=== PATIENT | male | born 1965 | race African-American/Black ===

== ENCOUNTER 2016-10-29 20:41 | Emergency (ER) | payer BC ==
[~2016-10-29] VITALS: Ht 182.9 cm; Wt 113.8 kg
[~2016-10-29 20:41] MED LIST: ACTOS 30 MG TAB30 MG PO; ALLOPURINOL 30300 M2 PO; CRESTOR10 MG PO; GLUCOPHAGE1000 MG PO; HUMALOG100 UNIT/2 SQ; HYDROCODON-ACE1 EAC1 PO; IBUPROFEN 600600 M1 PO; INDOMETHACIN 5050 M1 PO; IRBESARTAN-HCT1 EACH PO; JANUVIA100 MG PO; LANTUS SUBQ; LIPITOR40 MG PO; LISINOPRIL40 MG PO; MEDROLDOSEPACK PO; MEPERIDINE PO; NORVASC10 MG PO; NOVOLIN 70100 UNIT/5 SQ; PREDNISONE 10 M10 MG PO; TRAMADOL 50 MG50 MG PO; ZANTAC 150MG T150 MG PO; ZYRTEC10 M2 PO
[2016-10-29] MEDS ORDERED: VALSARTAN-HCTZ1 EAC4 PO (20:53)
[2016-10-29] MEDS ORDERED: ALDACTONE50 MG PO (20:53)
[2016-10-29] MEDS ORDERED: METOPROLOL SUCC50 MG PO (20:54)
[2016-10-29] MEDS ORDERED: CATAPRES0.2 MG PO (20:54)
[2016-10-29] MEDS ORDERED: ULORIC80 MG PO (20:54)
[2016-10-29 21:48] LABS: ABSOLUTE NEUTROPHILS 4.1 thou/uL (1.4-8.2); BASOPHILS 1.1 % (0.0-2.0); EOSINOPHILS 2.3 % (0.0-3.0); HEMATOCRIT 42.3 % (42.0-52.0); HEMOGLOBIN 13.7 gm/dL (14.0-18.0); LYMPHOCYTES 22.3 % (24.0-44.0); MCH 27.7 pg (26.0-34.0); MCHC 32.5 g/dL (28.0-37.0); MCV 85.5 fL (80.0-100.0); MONOCYTES 6.6 % (1.0-8.0); PLATELET COUNT 245 thou/uL (150-400); POLYS 67.7 % (36.0-66.0); RBC 4.95 mil/uL (4.50-6.00); WBC 6.1 thou/uL (4.0-11.0)
[2016-10-29 21:52] LABS: MANUAL DIFF NO
[2016-10-29 21:59] LABS: CALCIUM 8.3 mg/dL (8.5-10.1); CREATININE 2.2 mg/dL (0.7-1.3); POTASSIUM 5.3 mmol/L (3.5-5.1)
[2016-10-29 22:03] LABS: ALBUMIN 1.4 g/dL (3.4-5.0); TOTAL BILIRUBIN 0.2 mg/dL (<0.1-1.0); TOTAL PROTEIN 5.6 g/dL (6.4-8.2)
[2016-10-29 23:03] VITALS: BP 203/92
== END 2016-10-29 23:19 | disposition home or self-care (01) ==
LOC: ER 20:41
PROVIDERS: Emergency Medicine
DX: K59.00 Constipation, unspecified (principal); I12.9 Hypertensive chronic kidney disease with stage 1 through stage 4 chronic kidney disease, or unspecified chronic kidney disease; E11.22 Type 2 diabetes mellitus with diabetic chronic kidney disease; N18.9 Chronic kidney disease, unspecified; E11.65 Type 2 diabetes mellitus with hyperglycemia; E88.09 Other disorders of plasma-protein metabolism, not elsewhere classified; M10.9 Gout, unspecified; F10.99 Alcohol use, unspecified with unspecified alcohol-induced disorder; Z88.5 Allergy status to narcotic agent; Z88.6 Allergy status to analgesic agent; Z79.4 Long term (current) use of insulin

== ENCOUNTER 2016-11-01 06:28 | Inpatient (IN) | payer BC ==
[~2016-11-01] VITALS: Ht 182.9 cm; Wt 110.4 kg
--- NOTE | ~2016-11-01 | EKG ---
[address] [address] [address] [place] [address] ELECTROCARDIOGRAM REPORT Name: HERNAN WOLF III Room #: YARITZA Nazario#: [id number] Admission: 11/01/16 Attend Phys: Discharge: Date of : 63 Report #: [id number] THIS REPORT FOR: //name// [facility] ED Test Date: 2016-11-01 Test Time: 07:57:29 Pat Name: HERNAN WOLF Department: Room: Gender: Research Methodologist: : 1965 Requested By: Dona Camacho Order Number: [id number] MD: Tomás Newman Measurements Intervals [place] Rate: 74 P: 56 CT: 183 QRS: 41 QRSD: 104 T: 22 QT: 403 QTc: 448 Interpretive Statements Sinus rhythm Probable anteroseptal infarct, recent Compared to ECG 06/30/2010 23:50:59 No significant change was found Electronically Signed On 11-01-2016 8:32:30 CDT by Tomás Newman [email or web address] <ELECTRONICALLY SIGNED> By: Tomás Newman MD, [facility] 11/01/16 0832 0757 0757 Tomás Newman MD, FACC /EPI
[~2016-11-01 06:28] MED LIST changes: +ALDACTONE50 MG PO; +CATAPRES0.2 MG PO; +METOPROLOL SUCC50 MG PO; +ULORIC80 MG PO; +VALSARTAN-HCTZ1 EAC4 PO
[2016-11-01 06:33] VITALS: BP 223/151
[2016-11-01 06:53] LABS: ABSOLUTE NEUTROPHILS 3.3 thou/uL (1.4-8.2); BASOPHILS 1.1 % (0.0-2.0); EOSINOPHILS 2.8 % (0.0-3.0); HEMATOCRIT 44.4 % (42.0-52.0); HEMOGLOBIN 14.6 gm/dL (14.0-18.0); LYMPHOCYTES 27.5 % (24.0-44.0); MCHC 32.9 g/dL (28.0-37.0); MCV 85.1 fL (80.0-100.0); MONOCYTES 7.3 % (1.0-8.0); PLATELET COUNT 245 thou/uL (150-400); POLYS 61.3 % (36.0-66.0); RBC 5.21 mil/uL (4.50-6.00); WBC 5.3 thou/uL (4.0-11.0)
[2016-11-01 06:57] LABS: MANUAL DIFF NO
[2016-11-01 07:07] LABS: ALBUMIN 1.6 g/dL (3.4-5.0); ALKALINE PHOSPHATASE 126 U/L (46-116); ANION GAP 4 mmol/L (7-16); BUN 36 mg/dL (7-18); CALCIUM 8.7 mg/dL (8.5-10.1); CHLORIDE 106 mmol/L (98-107); CO2 26 mmol/L (21-32); CREATININE 2.3 mg/dL (0.7-1.3); DIRECT BILIRUBIN < 0.1 mg/dL (<0.1-0.3); GLUCOSE 289 mg/dL (74-106); SGOT 25 U/L (15-37); SGPT 28 U/L (30-65); SODIUM 136 mmol/L (136-145); TOTAL BILIRUBIN 0.3 mg/dL (<0.1-1.0); TOTAL PROTEIN 6.1 g/dL (6.4-8.2)
[2016-11-01 07:23] LABS: POTASSIUM 6.7 mmol/L (3.5-5.1)
[2016-11-01 08:44] LABS: CALCIUM 8.9 mg/dL (8.5-10.1); CREATININE 2.2 mg/dL (0.7-1.3)
[2016-11-01 08:47] LABS: POTASSIUM 6.2 mmol/L (3.5-5.1)
[2016-11-01 17:12] LABS: URINE BILIRUBIN NEGATIVE (Negative); URINE BLOOD 1+ (Negative); URINE COLOR YELLOW; URINE GLUCOSE-RANDOM* 2+ (Negative); URINE KETONES NEGATIVE (Negative); URINE NITRITE NEGATIVE (Negative); URINE PROTEIN (DIPSTICK) 3+ (Negative); URINE SPECIFIC GRAVITY 1.015 (1.003-1.035); URINE UROBILINOGEN 0.2 E.U./dl (0.2-1.0)
[2016-11-01 17:22] LABS: CASTS None Seen /LPF (None Seen); CRYSTALS None Seen /LPF (None Seen); SQUAMOUS None Seen /LPF (0-3); URINE RBC 0-2 Rare /HPF (0-2)
[2016-11-01 17:23] LABS: BACTERIA 1-9 Few /HPF (None Seen); URINE WBC 0-5 Rare /HPF (0-5)
[2016-11-01 17:27] LABS: URINE CREATININE-RANDOM* 62.7 mg/dL
[2016-11-01 17:35] VITALS: BP 128/78
[2016-11-01 17:37] LABS: URINE PROTEIN-RANDOM* 700.3 mg/dL (<11.9)
[2016-11-01 20:01] VITALS: BP 147/80
[2016-11-02 01:11] LABS: GLYCOHEMOGLOBIN (HGB A1C) 7.8 % (4.8-5.6)
[2016-11-02 03:10] VITALS: BP 138/87
[2016-11-02 04:24] LABS: ABSOLUTE NEUTROPHILS 2.9 thou/uL (1.4-8.2); BASOPHILS 0.8 % (0.0-2.0); EOSINOPHILS 3.2 % (0.0-3.0); HEMATOCRIT 36.9 % (42.0-52.0); HEMOGLOBIN 12.2 gm/dL (14.0-18.0); LYMPHOCYTES 34.5 % (24.0-44.0); MANUAL DIFF NO; MCH 27.8 pg (26.0-34.0); MCV 84.4 fL (80.0-100.0); MONOCYTES 7.3 % (1.0-8.0); PLATELET COUNT 211 thou/uL (150-400); POLYS 54.2 % (36.0-66.0); RBC 4.37 mil/uL (4.50-6.00); RDW 13.8 % (10.5-14.5); WBC 5.4 thou/uL (4.0-11.0)
[2016-11-02 04:29] LABS: ALBUMIN 1.2 g/dL (3.4-5.0); CALCIUM 7.8 mg/dL (8.5-10.1); CREATININE 2.2 mg/dL (0.7-1.3); PHOSPHORUS 4.3 mg/dL (2.5-4.9); TOTAL BILIRUBIN 0.2 mg/dL (<0.1-1.0); TOTAL PROTEIN 4.6 g/dL (6.4-8.2)
[2016-11-02 04:30] LABS: POTASSIUM 4.6 mmol/L (3.5-5.1)
[2016-11-02 07:07] VITALS: BP 158/83
[2016-11-02] MEDS ORDERED: METOPROLOL SUCC50 MG PO (10:52)
[2016-11-02] MEDS ORDERED: LANTUS SUBQ (10:52)
[2016-11-02] MEDS ORDERED: CLONIDINE HCL0.2 M2 PO (10:52)
[2016-11-02] MEDS ORDERED: HUMALOG100 UNIT/2 SQ (11:31)
[2016-11-02] MEDS ORDERED: MIRALAX17 GM PO (11:34)
[2016-11-02] MEDS ORDERED: COLACE100 MG PO (11:34)
[2016-11-02 11:40] VITALS: BP 158/83
[2016-11-05 15:07] LABS: KAPPA FREE LIGHT CHAINS 44.3 mg/L (3.3-19.4); LAMBDA FREE LIGHT CHAINS 20.1 mg/L (5.7-26.3)
[2016-11-05 16:09] LABS: c-ANCA <1:20 titer (Neg:<1:20); p-ANCA <1:20 titer (Neg:<1:20)
== END 2016-11-02 14:06 | disposition home or self-care (01) | DRG 682 ==
LOC: ER 06:28 → 4E 09:19 → EROBS 09:19 → 4E 11:31
PROVIDERS: Emergency Medicine; Internal Medicine; Internal Medicine Nephrology
DX: N17.9 Acute kidney failure, unspecified (principal); E43 Unspecified severe protein-calorie malnutrition; E87.5 Hyperkalemia; N18.4 Chronic kidney disease, stage 4 (severe); K59.00 Constipation, unspecified; M10.9 Gout, unspecified; E11.22 Type 2 diabetes mellitus with diabetic chronic kidney disease; T50.0X5A Adverse effect of mineralocorticoids and their antagonists, initial encounter; I12.9 Hypertensive chronic kidney disease with stage 1 through stage 4 chronic kidney disease, or unspecified chronic kidney disease; E78.5 Hyperlipidemia, unspecified; M19.90 Unspecified osteoarthritis, unspecified site; Z96.643 Presence of artificial hip joint, bilateral; K21.9 Gastro-esophageal reflux disease without esophagitis; Z88.8 Allergy status to other drugs, medicaments and biological substances; Y92.89 Other specified places as the place of occurrence of the external cause; Z83.3 Family history of diabetes mellitus; Z82.49 Family history of ischemic heart disease and other diseases of the circulatory system
CPT/HCPCS: 10183

== ENCOUNTER 2016-11-05 11:59 | Inpatient (IN) | payer BC ==
[~2016-11-05] VITALS: Ht 182.9 cm; Wt 106.1 kg
--- NOTE | ~2016-11-05 | EKG ---
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 Operator: PATRICIA : 1965 Requested By: Rosalba Vogt Order Number: [id number] MD: Natanael Soriano Measurements Intervals [place] Rate: 89 P: 76 MT: 233 QRS: 33 QRSD: 100 T: 27 QT: 373 QTc: 454 Interpretive Statements Sinus rhythm Prolonged MT interval Probable left ventricular hypertrophy ST elev, probable normal early repol pattern Baseline wander in lead(s) V1 Compared to ECG 11/01/2016 07:57:29 First degree AV block now present ST (T wave) deviation now present Myocardial infarct finding no longer present Electronically Signed On 11-06-2016 22:52:10 CDT by Natanael Soriano [email or web address] <ELECTRONICALLY SIGNED> By: Natanael Soriano MD 11/06/16 2252 1245 1245 Natanael Soriano MD /EPI
--- NOTE | ~2016-11-05 | 2DMMODE ---
[facility] [address] [place] [address] 2 D/M-MODE ECHOCARDIOGRAM Name: LUCIANOHERNAN [facility] Room #: 456-P [facility] IN ..#: [id number] Admission: 11/05/16 Attend Phys: Andie Chand Discharge: Date of : 63 Date of Service: 11/05/16 1724 Report #: [id number] THIS REPORT FOR: //name// APPROVED REPORT Study performed: 11/05/2016 15:33:56 EXAM: Comprehensive 2D, Doppler, and color-flow Echocardiogram Patient Location: Bedside Room #: 453 Other Information Study Quality: Adequate Indications CVA/TIA Diabetes Hypertension/HDD Echo Enhancing Agent Indication: Rule out Shunt Agent(s) / Amount(s) Used: Agitated Saline 6 cc 2D Dimensions RVDd: 31.85 mm LVEF(%): 64.05 (>50%) IVSd: 19.67 (7-11mm) LVOT Diam: 23.80 (18-24mm) LVDd: 40.40 mm PWd: 19.92 (7-11mm) Ascending Ao: 34.08 (22-36mm) LVDs: 26.49 (25-40mm) Aortic Root: 34.37 mm IVC: 10.00 mm Kelly's LVEF: 64.05 % Volumes Left Atrial Volume (Systole) Single Plane 4CH: 51.08 mL Single Plane 2CH: 38.47 mL LA ESV Index: 20.00 mL/m2 Aortic Valve AoV Peak Royce.: 1.25 m/s AO Peak Gr.: 6.23 mmHg LVOT Max P.06 mmHg LVOT Max V: 1.12 m/s NAVEEN Vmax: 4.01 cm2 Mitral Valve [facility] [place] [address] [address] 2 D/M-MODE ECHOCARDIOGRAM Name: LUCIANOHERNAN [facility] Room #: 456-P [facility] IN ..#: [id number] Admission: 11/05/16 Attend Phys: Andie Chand Discharge: Date of : 63 Date of Service: 11/05/16 1724 Report #: [id number] E/A Ratio: 0.6 MV Decel. Time: 304.88 ms MV E Max Royce.: 0.71 m/s MV A Royce.: 1.12 m/s MV PHT: 88.42 ms IVRT: 65.74 ms Pulmonary Valve PV Peak Royce.: 1.37 m/s PV Peak Gr.: 7.56 mmHg Pulmonary Vein P Vein S: 0.70 m/s P Vein A: 0.13 m/s P Vein D: 0.54 m/s P Vein A Dur.: 86.5 msec P Vein S/D Ratio: 1.30 Tricuspid Valve RAP Estimate: 5.00 mmHg Left Ventricle The left ventricle is normal size. Severe concentric left ventricular hypertrophy. The left ventricular systolic function is normal. The left ventricular ejection fraction is within the normal range. LVEF is 60-65%. Mild diastolic dysfunction is present (impaired relaxation pattern). Right Ventricle The right ventricle is normal size. The right ventricular systolic function is normal. Atria The left atrium size is normal. Injection of bubbles documented no interatrial shunt. The right atrium size is normal. Aortic Valve The aortic valve is normal in structure. No aortic regurgitation is present. There is no aortic valvular stenosis. Mitral Valve The mitral valve is normal in structure. There is no mitral valve regurgitation noted. No evidence of mitral valve stenosis. Tricuspid Valve The tricuspid valve is normal in structure. There is no tricuspid valve regurgitation noted. Unable to assess PA pressure. Pulmonic Valve [address] [address] 2 D/M-MODE ECHOCARDIOGRAM Name: HERNAN WOLF III Room #: 456-P [facility] IN .R.#: [id number] Admission: 11/05/16 Attend Phys: Andie Chand Discharge: Date of : 63 Date of Service: 11/05/16 1724 Report #: [id number] Pulmonic valve is not well visualized. Trace pulmonic regurgitation. Great Vessels The aortic root is normal in size. IVC is normal in size and collapses >50% with inspiration. <Conclusion> The left ventricle is normal size. LVEF is 60-65%. The aortic valve is normal in structure. The mitral valve is normal in structure. The tricuspid valve is normal in structure. Pulmonic valve is not well visualized. Trace pulmonic regurgitation. <ELECTRONICALLY SIGNED> By: Neeraj Vidales MD 11/05/164 23 23 Neeraj Vidales MD /INF
[~2016-11-05 11:59] MED LIST changes: +CLONIDINE HCL0.2 M2 PO; +COLACE100 MG PO; +MIRALAX17 GM PO
[2016-11-05 12:27] LABS: ABSOLUTE NEUTROPHILS 2.6 thou/uL (1.4-8.2); BASOPHILS 1.3 % (0.0-2.0); EOSINOPHILS 3.3 % (0.0-3.0); HEMATOCRIT 40.7 % (42.0-52.0); HEMOGLOBIN 13.5 gm/dL (14.0-18.0); LYMPHOCYTES 29.9 % (24.0-44.0); MCH 27.6 pg (26.0-34.0); MCV 83.6 fL (80.0-100.0); PLATELET COUNT 237 thou/uL (150-400); POLYS 56.5 % (36.0-66.0); RBC 4.87 mil/uL (4.50-6.00); RDW 13.2 % (10.5-14.5); WBC 4.6 thou/uL (4.0-11.0)
[2016-11-05 12:29] LABS: MANUAL DIFF NO
[2016-11-05 12:35] LABS: ANION GAP 7 mmol/L (7-16); BUN 43 mg/dL (7-18); CHLORIDE 110 mmol/L (98-107); CO2 25 mmol/L (21-32); CREATININE 2.3 mg/dL (0.7-1.3); SODIUM 142 mmol/L (136-145)
[2016-11-05 12:38] LABS: GLUCOSE 31 mg/dL (74-106)
[2016-11-05 12:43] LABS: TROPONIN-I < 0.04 ng/mL (<0.04-0.07)
[2016-11-05 14:12] LABS: CHOLESTEROL 230 mg/dL (<200); HDL CHOLESTEROL 65 mg/dL (>40); LDL CHOLESTEROL 148 mg/dL (<100); TC:HDL 3.5 Ratio (Not establshd); TRIGLYCERIDE 86 mg/dL (<150); VLDL 17 mg/dL (<40)
[2016-11-05 14:28] VITALS: BP 197/101
[2016-11-05 14:56] VITALS: BP 150/82
[2016-11-05 19:35] VITALS: BP 160/77
[2016-11-06] VITALS: BP 116/65
[2016-11-06 03:08] VITALS: BP 146/77
[2016-11-06 06:45] LABS: ALBUMIN 1.5 g/dL (3.4-5.0); CALCIUM 8.2 mg/dL (8.5-10.1); CREATININE 2.4 mg/dL (0.7-1.3); POTASSIUM 4.2 mmol/L (3.5-5.1); TROPONIN-I 0.05 ng/mL (<0.04-0.07)
[2016-11-06 09:09] VITALS: BP 153/92
[2016-11-06 11:21] VITALS: BP 160/80
[2016-11-06 20:11] VITALS: BP 159/88
[2016-11-07] VITALS (8 sets, daily range): BP systolic 131–189; BP diastolic 75–107
[2016-11-08 04:00] VITALS: BP 122/76
[2016-11-08 05:44] VITALS: BP 161/85
[2016-11-08 08:15] VITALS: BP 182/68
[2016-11-08] MEDS ORDERED: LABETALOL HCL200 MG PO (09:36)
[2016-11-08] MEDS ORDERED: MINOXIDIL10 MG PO (09:36)
[2016-11-08] MEDS ORDERED: ASPIRIN325 PO ×2 (09:38)
[2016-11-08 12:25] VITALS: BP 138/70
[2016-11-08 15:33] VITALS: BP 138/70
[2016-11-09 01:06] LABS: DIL. RUSSELL VIPER VENOM 37.7 sec (0.0-47.0)
[2016-11-09 04:07] LABS: PROTEIN C ANTIGEN* 131 % (60-150)
== END 2016-11-08 16:40 | disposition home or self-care (01) | DRG 64 ==
LOC: ER 11:59 → 4W 12:43 → EROBS 12:43 → 4W 14:31
PROVIDERS: Emergency Medicine; Hospitalist; Psychiatry & Neurology Neurology
DX: I62.9 Nontraumatic intracranial hemorrhage, unspecified (principal); E43 Unspecified severe protein-calorie malnutrition; I16.9 Hypertensive crisis, unspecified; E11.649 Type 2 diabetes mellitus with hypoglycemia without coma; E11.319 Type 2 diabetes mellitus with unspecified diabetic retinopathy without macular edema; I10 Essential (primary) hypertension; E78.5 Hyperlipidemia, unspecified; M10.9 Gout, unspecified; Z79.4 Long term (current) use of insulin; Z79.899 Other long term (current) drug therapy; Z88.8 Allergy status to other drugs, medicaments and biological substances; Z83.3 Family history of diabetes mellitus; Z82.49 Family history of ischemic heart disease and other diseases of the circulatory system
CPT/HCPCS: 10045

== ENCOUNTER 2016-11-11 10:39 | Emergency (ER) | payer BC ==
[~2016-11-11] VITALS: Ht 182.9 cm; Wt 108.9 kg
--- NOTE | ~2016-11-11 | EKG ---
[address] [place] [address] ELECTROCARDIOGRAM REPORT Name: HERNAN WOLF III Room #: DEP KAYLA Nazario#: [id number] Admission: 11/11/16 Attend Phys: Discharge: 11/11/16 Date of : 63 Report #: [id number] THIS REPORT FOR: //name// [facility] ED Test Date: 2016-11-11 Test Time: 10:52:05 Pat Name: HERNAN WOLF Department: Room: Gender: M Crop Scout: jose luis : 1965 Requested By: Art Cortez Order Number: [id number] MD: Tomás Newman Measurements Intervals [place] Rate: 100 P: 58 AR: 188 QRS: 17 QRSD: 96 T: 27 QT: 356 QTc: 460 Interpretive Statements Sinus tachycardia Probable left atrial enlargement Anteroseptal infarct, old Compared to ECG 11/05/2016 12:45:30 No significant change was found Electronically Signed On 11-12-2016 9:23:31 CDT by Tomás Newman [email or web address] <ELECTRONICALLY SIGNED> By: Tomás Newman MD, [facility] 11/12/16 0923 51 51 Tomás Newman MD, [facility] /EPI
[~2016-11-11 10:39] MED LIST changes: +ASPIRIN325 PO; +LABETALOL HCL200 MG PO; +MINOXIDIL10 MG PO
[2016-11-11 11:29] LABS: BASOPHILS 1.5 % (0.0-2.0); EOSINOPHILS 2.5 % (0.0-3.0); HEMATOCRIT 37.9 % (42.0-52.0); HEMOGLOBIN 12.7 gm/dL (14.0-18.0); LYMPHOCYTES 23.5 % (24.0-44.0); MCH 27.7 pg (26.0-34.0); MCHC 33.4 g/dL (28.0-37.0); MCV 82.8 fL (80.0-100.0); MONOCYTES 8.3 % (1.0-8.0); PLATELET COUNT 266 thou/uL (150-400); POLYS 64.2 % (36.0-66.0); RBC 4.57 mil/uL (4.50-6.00); RDW 13.4 % (10.5-14.5); WBC 4.7 thou/uL (4.0-11.0)
[2016-11-11 11:37] LABS: CALCIUM 8.4 mg/dL (8.5-10.1); CREATININE 2.7 mg/dL (0.7-1.3); POTASSIUM 5.1 mmol/L (3.5-5.1)
[2016-11-11 11:38] LABS: MANUAL DIFF NO
[2016-11-11 11:46] LABS: TROPONIN-I 0.09 ng/mL (<0.04-0.07)
[2016-11-11 12:30] LABS: AMP/METHAMP Negative (Negative); BARBITURATES Negative (Negative); BENZODIAZEPINES Negative (Negative); COCAINE Negative (Negative); METHADONE Negative (Negative); OPIATES Negative (Negative); PCP Negative (Negative); THC Negative (Negative)
== END 2016-11-11 15:08 | disposition home or self-care (01) ==
LOC: ER 10:39
PROVIDERS: Emergency Medicine
DX: R00.2 Palpitations (principal); E11.9 Type 2 diabetes mellitus without complications; I10 Essential (primary) hypertension; M10.9 Gout, unspecified; F10.99 Alcohol use, unspecified with unspecified alcohol-induced disorder; Z86.718 Personal history of other venous thrombosis and embolism; Z79.4 Long term (current) use of insulin; Z88.5 Allergy status to narcotic agent; Z88.6 Allergy status to analgesic agent

== ENCOUNTER 2016-12-12 15:06 | Inpatient (IN) | payer BC ==
[~2016-12-12] VITALS: Ht 182.9 cm; Wt 102.5 kg
--- NOTE | ~2016-12-12 | HC ---
[facility] [place] [address] [place] [address] CONSULTATION Name: LUCIANOHERNAN TREVIN Room #: 426-[facility] IN M.R.#: [id number] Admission: 12/12/16 Attend Phys: Enmanuel Chen DO Discharge: Date of : 63 Report #: [id number] THIS REPORT FOR: //name// CC: Enmanuel Herrmann DATE OF SERVICE: 12/12/2016 REASON FOR CONSULTATION: Acute kidney injury. REASON FOR PRESENTATION: Weakness. HISTORY OF PRESENT ILLNESS: The patient is a 51-year-old with past medical history of diabetes mellitus, hypertension, DVT. He is well known to me. He had battled with his blood pressure control in the last couple of months. He had had numerous hospitalizations. He was on many vasodilators contributing to lower extremity edema. He visited with my clinic. I was able to keep him on a stable regimen including clonidine, labetalol, valsartan, Lasix twice a day. He did extremely well and his weight has gone down from 260 to 226. I was able to get him of the minoxidil and the hydralazine that were contributing to his lower extremity edema. He was not able to tolerate Aldactone in the past because of hyperkalemia. He had started watching his diet and salt intake. This has contributed to very significant fluid loss and he came in complaining of weakness. No reported urinary symptoms. No fever or chills. No syncope. On presentation, he was found to have creatinine of around 4. He was admitted for further evaluation and management. He is known to have chronic kidney disease with baseline creatinine of around 2.0. He has diabetic nephropathy. MEDICATION: 1. Lasix 40 mg twice a day. 2. Valsartan. 3. Uloric. 4. Crestor. 5. Lantus 20 units at bedtime. 6. Labetalol 100 mg daily. 7. Clonidine 0.2 daily. PAST MEDICAL AND SURGICAL HISTORY: 1. Diabetes mellitus. 2. Chronic kidney disease. 3. Hypertension. 4. Status post hip surgery. 5. Left lower extremity DVT. 6. Stroke. 7. Gout. [facility] [address] [place] [address] CONSULTATION Name: LUCIANOHERNAN TREVIN Room #: 426-P [facility] IN .R.#: [id number] Admission: 12/12/16 Attend Phys: Enmanuel Chen DO Discharge: Date of : 63 Report #: [id number] FAMILY HISTORY: Significant for diabetes mellitus and hypertension. SOCIAL HISTORY: No drug or alcohol abuse. He does not work at the current time. REVIEW OF SYSTEMS: GENERAL: Significant for weakness. PULMONARY: No cough or hemoptysis. GASTROINTESTINAL: No nausea or vomiting. CARDIOVASCULAR: Occasional dyspnea on exertion. No lower extremity edema. GENITOURINARY: No frequency, no urgency. MUSCULOSKELETAL: No joint pain. No joint swelling. SKIN: No rash or ulcerations. NEUROLOGICAL: Significant for weakness. No numbness, no tingling. ENDOCRINE: No excessive sweating. No intolerance to heat or cold. HEMATOLOGICAL: No easy bruisability. PHYSICAL EXAMINATION: GENERAL: He is alert, oriented, in no apparent distress. VITAL SIGNS: Temperature 36.6, blood pressure 158/70. HEAD AND NECK: No jugular venous distention, no bruit, no thyromegaly. CHEST: Clear to auscultation bilaterally. CARDIOVASCULAR: No rub detected. ABDOMEN: Soft, nontender with no hepatosplenomegaly. EXTREMITIES: Lower extremity essentially no edema at all. LABORATORY VALUES: Reviewed. Creatinine is down to 3.6 from 4.1, BUN is 93. Sodium is 139, potassium is 4.1. Hemoglobin is 12.4. ASSESSMENT, IMPRESSION AND PLAN: 1. Chronic kidney disease. 2. Acute kidney injury due to over diuresis. 3. Hypertension. 4. Diabetes mellitus. 5. Currently improving with IV fluids. 6. Continue with IV fluid. 7. His stable regimen should be Catapres, labetalol, valsartan or equivalent. Hold Lasix for now. I will reduce the dose of the Lasix upon discharge to once a day instead of twice a day. He was not able to tolerate Aldactone for significant hyperkalemia in the past. He should be off hydralazine and minoxidil and those were not resumed. 8. Blood sugar control. [address] [address] CONSULTATION Name: HERNAN WOLF [facility] Room #: 426-P [facility] IN M.R.#: [id number] Admission: 12/12/16 Attend Phys: Enmanuel Chen DO Discharge: Date of : 63 Report #: [id number] 9. Expect his kidney function to continue to improve and to get back to his baseline by tomorrow. <ELECTRONICALLY SIGNED> By: Rolando Duong MD 12/14/16 0800 1126 1152 Rolando Duong MD /nt
--- NOTE | ~2016-12-12 | EKG ---
[address] [address] ELECTROCARDIOGRAM REPORT Name: HERNAN WOLF III Room #: 426-P [facility] IN M.R.#: [id number] Admission: 12/12/16 Attend Phys: Enmanuel Chen DO Discharge: 12/15/16 Date of : 63 Report #: [id number] THIS REPORT FOR: //name// [facility] ED Test Date: 2016-12-12 Test Time: 15:10:27 Pat Name: HERNAN WOLF Department: Room: 42 Gender: M Motor Installer: KIRK : 1965 Requested By: Bong Mims Order Number: [id number] MD: Natanael Soriano Measurements Intervals [place] Rate: 74 P: 58 ID: 190 QRS: 35 QRSD: 100 T: 22 QT: 396 QTc: 440 Interpretive Statements Sinus rhythm Anterior infarct, old Minimal ST elevation, lateral leads Compared to ECG 11/11/2016 10:52:05 ST (T wave) deviation now present Sinus tachycardia no longer present Myocardial infarct finding still present Electronically Signed On 12-16-2016 21:52:47 CDT by Natanael Soriano [email or web address] <ELECTRONICALLY SIGNED> By: Natanael Soriano MD 12/16/16 2152 1510 1510 Natanael Soriano MD /EPI
--- NOTE | ~2016-12-12 | EKG ---
[address] [address] ELECTROCARDIOGRAM REPORT Name: HERNAN WOLF III Room #: 426-P [facility] IN M.R.#: [id number] Admission: 12/12/16 Attend Phys: Enmanuel Chen DO Discharge: 12/15/16 Date of : 63 Report #: [id number] THIS REPORT FOR: //name// [facility] ED Test Date: 2016-12-12 Test Time: 16:23:07 Pat Name: HERNAN WOLF Department: Room: 426 Gender: M Biometrics Head: [id number] : 1965 Requested By: Bong Mims Order Number: [id number] MD: Natanael Soriano Measurements Intervals [place] Rate: 68 P: 64 TX: 192 QRS: 23 QRSD: 96 T: 20 QT: 410 QTc: 437 Interpretive Statements Sinus rhythm Anterior infarct, old Minimal ST elevation, lateral leads Compared to ECG 11/11/2016 10:52:05 ST (T wave) deviation now present Sinus tachycardia no longer present Myocardial infarct finding still present Electronically Signed On 12-16-2016 21:53:29 CDT by Natanael Soriano [email or web address] <ELECTRONICALLY SIGNED> By: Natanael Soriano MD 12/16/16 2153 1623 1623 Natanael Soriano MD /EPI
--- NOTE | ~2016-12-12 | 2DMMODE ---
[facility] [address] [place] [address] 2 D/M-MODE ECHOCARDIOGRAM Name: LUCIANOHERNAN [facility] Room #: 426-P [facility] IN .R.#: [id number] Admission: 12/12/16 Attend Phys: Enmanuel Chen, Discharge: Date of : 63 Date of Service: 12/13/16 1503 Report #: [id number] THIS REPORT FOR: //name// APPROVED REPORT Study performed: 12/13/2016 13:50:14 EXAM: Comprehensive 2D, Doppler, and color-flow Echocardiogram Patient Location: Echo lab Room #: 426 Status: routine BSA: 2.24 HR: 67 bpm BP: 158/70 mmHg Rhythm: NSR Other Information Study Quality: Good 2D Dimensions RVDd: 35.36 mm LVEF(%): 59.01 (>50%) IVSd: 15.11 (7-11mm) LVOT Diam: 22.53 (18-24mm) LVDd: 43.73 mm PWd: 15.86 (7-11mm) Ascending Ao: 33.85 (22-36mm) LVDs: 30.15 (25-40mm) Aortic Root: 35.98 mm Kelly's LVEF: 59.01 % Volumes Left Atrial Volume (Systole) Single Plane 4CH: 48.05 mL Single Plane 2CH: 39.65 mL LA ESV Index: 22.00 mL/m2 Aortic Valve AoV Peak Royce.: 1.05 m/s AO Peak Gr.: 4.37 mmHg LVOT Max P.45 mmHg LVOT Max V: 0.93 m/s NAVEEN Vmax: 3.54 cm2 Mitral Valve E/A Ratio: 1.1 MV Decel. Time: 193.98 ms MV E Max Royce.: 0.85 m/s MV A Royce.: 0.78 m/s MV PHT: 56.26 ms [facility] [place] [address] 2 D/M-MODE ECHOCARDIOGRAM Name: LUCIANOHERNAN [facility] Room #: 426-P [facility] IN ..#: [id number] Admission: 12/12/16 Attend Phys: Enmanuel Chen, Discharge: Date of : 63 Date of Service: 12/13/16 1503 Report #: [id number] IVRT: 110.73 ms Pulmonary Valve PV Peak Royce.: 0.72 m/s PV Peak Gr.: 2.09 mmHg Pulmonary Vein P Vein S: 0.62 m/s P Vein D: 0.54 m/s P Vein S/D Ratio: 1.15 Tricuspid Valve RAP Estimate: 5.00 mmHg Left Ventricle The left ventricle is normal size. There is normal LV segmental wall motion. Moderate to severe concentric left ventricular hypertrophy. Left ventricular systolic function is normal. LVEF is 60%. Right Ventricle The right ventricle is normal size. The right ventricular systolic function is normal. Atria The left atrium size is normal. The right atrium size is normal. Aortic Valve The aortic valve is normal in structure. Trace to mild aortic regurgitation. There is no aortic valvular stenosis. Mitral Valve The mitral valve is normal in structure. Trace mitral regurgitation. No evidence of mitral valve stenosis. Tricuspid Valve The tricuspid valve is normal in structure. There is no tricuspid valve regurgitation noted. Unable to assess PAP pressures. Pulmonic Valve The pulmonary valve is normal in structure. Trace to mild pulmonic regurgitation. Great Vessels The aortic root is normal in size. The ascending aorta is normal in size. IVC is normal in size and collapses >50% with inspiration. [facility] [address] [place] [address] 2 D/M-MODE ECHOCARDIOGRAM Name: LUCIANOHERNAN TREVIN Room #: 426-P [facility] IN ..#: [id number] Admission: 12/12/16 Attend Phys: Enmanuel Chen, Discharge: Date of : 63 Date of Service: 12/13/16 1503 Report #: [id number] Pericardium There is no pericardial effusion. <Conclusion> The left ventricle is normal size. Moderate to severe concentric left ventricular hypertrophy. LVEF is 60%. The aortic valve is normal in structure. Trace to mild aortic regurgitation. The mitral valve is normal in structure. Trace mitral regurgitation. The tricuspid valve is normal in structure. There is no tricuspid valve regurgitation noted. Unable to assess PAP pressures. The pulmonary valve is normal in structure. Trace to mild pulmonic regurgitation. <ELECTRONICALLY SIGNED> By: Neeraj Vidales MD 12/13/16 1503 1503 1503 Neeraj Vidales MD /INF
[2016-12-12 15:08] VITALS: BP 118/70
[2016-12-12] MEDS ORDERED: DIOVAN 80 MG TA80 M1 PO (15:19)
[2016-12-12] MEDS ORDERED: LASIX 40 MG TAB40 M2 PO (15:19)
[2016-12-12] MEDS ORDERED: CATAPRES0.2 MG PO (15:21)
[2016-12-12] MEDS ORDERED: HUMALOG PE100 UNIT/M SQ (15:22)
[2016-12-12] MEDS ORDERED: LANTUS SQ (15:22)
[2016-12-12] MEDS ORDERED: LABETALOL HCL200 MG PO (15:25)
[2016-12-12 16:02] LABS: ABSOLUTE NEUTROPHILS 3.4 thou/uL (1.4-8.2); BASOPHILS 1.2 % (0.0-2.0); EOSINOPHILS 3.3 % (0.0-3.0); HEMATOCRIT 38.5 % (42.0-52.0); HEMOGLOBIN 12.7 gm/dL (14.0-18.0); LYMPHOCYTES 26.8 % (24.0-44.0); MCH 27.3 pg (26.0-34.0); MCHC 32.9 g/dL (28.0-37.0); MCV 82.9 fL (80.0-100.0); MONOCYTES 6.9 % (1.0-8.0); PLATELET COUNT 271 thou/uL (150-400); POLYS 61.8 % (36.0-66.0); RBC 4.64 mil/uL (4.50-6.00); RDW 12.8 % (10.5-14.5); WBC 5.5 thou/uL (4.0-11.0)
[2016-12-12 16:03] LABS: MANUAL DIFF NO
[2016-12-12 16:07] LABS: ANION GAP 6 mmol/L (7-16); BUN 93 mg/dL (7-18); CALCIUM 8.5 mg/dL (8.5-10.1); CHLORIDE 104 mmol/L (98-107); CO2 27 mmol/L (21-32); CREATININE 4.1 mg/dL (0.7-1.3); GLUCOSE 294 mg/dL (74-106); SODIUM 137 mmol/L (136-145)
[2016-12-12 16:20] LABS: ALBUMIN 2.5 g/dL (3.4-5.0); ALKALINE PHOSPHATASE 112 U/L (46-116); NT-PRO BRAIN NAT PEPTIDE 223 pg/mL (<300); SGOT 21 U/L (15-37); SGPT 31 U/L (30-65); TOTAL BILIRUBIN 0.3 mg/dL (<0.1-1.0); TOTAL PROTEIN 6.5 g/dL (6.4-8.2); TROPONIN-I < 0.04 ng/mL (<0.04-0.07)
[2016-12-12 18:04] VITALS: BP 195/89
[2016-12-12 18:37] VITALS: BP 172/71
[2016-12-12 19:20] VITALS: BP 141/61
[2016-12-13 03:36] VITALS: BP 145/85
[2016-12-13 05:40] LABS: ABSOLUTE NEUTROPHILS 2.7 thou/uL (1.4-8.2); BASOPHILS 1.2 % (0.0-2.0); EOSINOPHILS 3.6 % (0.0-3.0); HEMATOCRIT 37.6 % (42.0-52.0); HEMOGLOBIN 12.4 gm/dL (14.0-18.0); LYMPHOCYTES 30.5 % (24.0-44.0); MCH 27.6 pg (26.0-34.0); MCV 83.6 fL (80.0-100.0); MONOCYTES 8.1 % (1.0-8.0); PLATELET COUNT 236 thou/uL (150-400); POLYS 56.6 % (36.0-66.0); RDW 13.3 % (10.5-14.5); WBC 4.8 thou/uL (4.0-11.0)
[2016-12-13 05:48] LABS: MANUAL DIFF NO
[2016-12-13 06:13] LABS: CALCIUM 8.5 mg/dL (8.5-10.1); CREATININE 3.6 mg/dL (0.7-1.3); MAGNESIUM 2.1 mg/dL (1.8-2.4); POTASSIUM 4.1 mmol/L (3.5-5.1)
[2016-12-13 07:50] LABS: PLATELET ESTIMATE NORMAL
[2016-12-13 08:09] VITALS: BP 158/70
[2016-12-13 16:43] VITALS: BP 191/101
[2016-12-13 19:05] VITALS: BP 186/101
[2016-12-13 21:55] VITALS: BP 137/72
[2016-12-14 03:19] VITALS: BP 155/80
[2016-12-14 05:38] LABS: ABSOLUTE NEUTROPHILS 4.2 thou/uL (1.4-8.2); BASOPHILS 1.3 % (0.0-2.0); EOSINOPHILS 2.4 % (0.0-3.0); HEMATOCRIT 37.7 % (42.0-52.0); HEMOGLOBIN 12.4 gm/dL (14.0-18.0); MCH 27.3 pg (26.0-34.0); MCHC 32.9 g/dL (28.0-37.0); MONOCYTES 6.4 % (1.0-8.0); PLATELET COUNT 237 thou/uL (150-400); POLYS 69.9 % (36.0-66.0); RBC 4.54 mil/uL (4.50-6.00)
[2016-12-14 05:41] LABS: MANUAL DIFF NO
[2016-12-14 06:17] LABS: CALCIUM 8.6 mg/dL (8.5-10.1); CREATININE 3.1 mg/dL (0.7-1.3); POTASSIUM 4.6 mmol/L (3.5-5.1)
[2016-12-14 08:10] VITALS: BP 143/80
[2016-12-14 15:39] VITALS: BP 152/69
[2016-12-14 19:00] VITALS: BP 176/70
[2016-12-15 03:12] VITALS: BP 153/91
[2016-12-15 03:59] LABS: ALBUMIN 2.2 g/dL (3.4-5.0); CALCIUM 8.7 mg/dL (8.5-10.1); CREATININE 2.9 mg/dL (0.7-1.3); PHOSPHORUS 5.2 mg/dL (2.5-4.9); POTASSIUM 4.3 mmol/L (3.5-5.1)
[2016-12-15 04:09] LABS: ABSOLUTE NEUTROPHILS 2.3 thou/uL (1.4-8.2); BASOPHILS 1.1 % (0.0-2.0); EOSINOPHILS 4.2 % (0.0-3.0); HEMOGLOBIN 11.9 gm/dL (14.0-18.0); LYMPHOCYTES 36.8 % (24.0-44.0); MCH 27.5 pg (26.0-34.0); MCV 83.3 fL (80.0-100.0); MONOCYTES 9.3 % (1.0-8.0); PLATELET COUNT 239 thou/uL (150-400); POLYS 48.6 % (36.0-66.0); RBC 4.32 mil/uL (4.50-6.00); WBC 4.8 thou/uL (4.0-11.0)
[2016-12-15 04:10] LABS: MANUAL DIFF NO
[2016-12-15 07:37] VITALS: BP 141/82
[2016-12-15] MEDS ORDERED: HUMALOG100 UNIT/1 SUBQ (09:38)
[2016-12-15 09:40] VITALS: BP 141/82
[2016-12-15] MEDS ORDERED: CHLORTHALIDONE25 MG PO (10:35)
== END 2016-12-15 10:53 | disposition home or self-care (01) | DRG 682 ==
LOC: ER 15:06 → EROBS 17:25 → 4E 17:25
PROVIDERS: Emergency Medicine; Family Medicine; Hospitalist; Nurse Practitioner
DX: N17.9 Acute kidney failure, unspecified (principal); E43 Unspecified severe protein-calorie malnutrition; M10.9 Gout, unspecified; I12.9 Hypertensive chronic kidney disease with stage 1 through stage 4 chronic kidney disease, or unspecified chronic kidney disease; T50.2X5A Adverse effect of carbonic-anhydrase inhibitors, benzothiadiazides and other diuretics, initial encounter; E11.22 Type 2 diabetes mellitus with diabetic chronic kidney disease; E78.00 Pure hypercholesterolemia, unspecified; N18.4 Chronic kidney disease, stage 4 (severe); Z79.899 Other long term (current) drug therapy; Z88.6 Allergy status to analgesic agent; Z88.8 Allergy status to other drugs, medicaments and biological substances; Z86.718 Personal history of other venous thrombosis and embolism; Z83.3 Family history of diabetes mellitus; Z82.49 Family history of ischemic heart disease and other diseases of the circulatory system; Y92.89 Other specified places as the place of occurrence of the external cause; I69.398 Other sequelae of cerebral infarction; Z68.30 Body mass index [BMI] 30.0-30.9, adult
CPT/HCPCS: 10084; 10183

== ENCOUNTER → 2016-12-24 | Outpatient (CLI) | payer BC ==
[~2016-12-24] MED LIST changes: +CHLORTHALIDONE25 MG PO; +DIOVAN 80 MG TA80 M1 PO; +HUMALOG PE100 UNIT/M SQ; +HUMALOG100 UNIT/1 SUBQ; +LANTUS SQ; +LASIX 40 MG TAB40 M2 PO
== END ==
LOC: CAT 10:45
DX: I21.3 ST elevation (STEMI) myocardial infarction of unspecified site (principal)

== ENCOUNTER → 2017-01-18 | Outpatient (CLI) | payer BC ==
[~2017-01-18] MED LIST changes: +HUMALOG100 UNIT/2 SUBQ
== END ==
LOC: MRI 07:03
DX: I63.9 Cerebral infarction, unspecified (principal)

== ENCOUNTER 2017-01-21 09:55 | Inpatient (IN) | payer BC ==
[~2017-01-21] VITALS: Ht 182.9 cm; Wt 102.5 kg
--- NOTE | ~2017-01-21 | HC ---
[facility] [place] [address] CONSULTATION Name: HERNAN WOLF TREVIN Room #: 457-P [facility] IN M.R.#: [id number] Admission: 01/21/17 Attend Phys: Andie Lang Discharge: Date of : 63 Report #: [id number] THIS REPORT FOR: //name// CC: Andie Herrmann REASON FOR CONSULTATION: Chronic kidney disease. REASON FOR PRESENTATION: Numbness of the digits. HISTORY OF PRESENT ILLNESS: The patient is well known to me. He is a CKD patient due to diabetes mellitus. His baseline creatinine is around 2.5. He had been extremely controlled with his blood pressure with regarding to his blood pressure in the last couple of months when I saw him in the clinic. He is usually maintained on valsartan once a day, clonidine once at night, chlorthalidone, and labetalol twice a day. He saw his generation engineer and there had been an increment in the dose of his valsartan to twice a day. On presentation to the emergency room, he was found to have hyperkalemia and I was consulted to manage his chronic kidney disease and his hyperkalemia. renal function as I have stated, he suffers from longstanding diabetes mellitus and hypertension, his blood pressure was extremely out of control lately; however, we got it under control with appropriate regimen. PAST MEDICAL HISTORY: 1. Diabetes mellitus. 2. Chronic kidney disease. 3. Hypertension. 4. Left DVT. 5. Remote history of stroke. 6. Gout. FAMILY HISTORY: Significant for diabetes and hypertension. SOCIAL HISTORY: No drug or alcohol abuse. No smoking. REVIEW OF SYSTEMS: GENERAL: No fever or chills. CARDIOVASCULAR: No chest pain or palpitation. PULMONARY: No cough or hemoptysis. GASTROINTESTINAL: No nausea or vomiting. GENITOURINARY: No frequency. No urgency. SKIN: No rash or ulcerations. HEMATOLOGIC: No easy bruisability. MUSCULOSKELETAL: No joints pain. No joint swelling. NEUROLOGIC: Some numbness on the left upper extremity, but no other abnormalities detected on the review of systems. [facility] [address] [place] [address] CONSULTATION Name: HERNAN WOLF III Room #: 457-P [facility] IN ..#: [id number] Admission: 01/21/17 Attend Phys: Andie Lang Discharge: Date of : 63 Report #: [id number] MEDICATIONS: 1. Clonidine. 2. Valsartan. 3. Labetalol. 4. Aspirin. 5. Chlorthalidone. 6. Insulin. PHYSICAL EXAMINATION: GENERAL: He is alert, oriented, in no apparent distress. VITAL SIGNS: Blood pressure was 160/73. HEAD AND NECK: No jugular venous distention, no bruit, no thyromegaly. CHEST: Clear to auscultation bilaterally. CARDIOVASCULAR: No rub detected. ABDOMEN: Soft, nontender with no hepatosplenomegaly. LOWER EXTREMITIES: No edema. NEUROLOGIC: Grossly intact cranial nerves, . Head CT and MRI along with his chest x-ray reviewed. ASSESSMENT, IMPRESSION, AND PLAN: 1. Chronic kidney disease. 2. Hypertensive urgency. 3. Hyperkalemia related to recent increment in the dose of his valsartan. 4. From the renal perspective, he is stable. His potassium has normalized. 5. Keep the patient on valsartan home dose medication once a day. He should be on clonidine once at night. Labetalol should be twice a day. Chlorthalidone should be once a day. He also should be on low salt diet and those should bring his blood pressure down. If not, I will titrate his labetalol up to try to avoid hyperkalemia related to the titration of his valsartan. By: 0850 1211 Rolando Duong MD /nt
--- NOTE | ~2017-01-21 | EKG ---
[address] [address] ELECTROCARDIOGRAM REPORT Name: HERNAN WOLF III Room #: 170-6 ADM IN M.R.#: [id number] Admission: 01/21/17 Attend Phys: Andie Lang Discharge: Date of : 63 Report #: [id number] THIS REPORT FOR: //name// [facility] ED Test Date: 2017-01-21 Test Time: 10:31:17 Pat Name: HERNAN WOLF Department: Room: 170 Gender: M Shift Coordinator: YOSEF : 1965 Requested By: Mian Jordan Order Number: [id number] MD: Natanael Soriano Measurements Intervals [place] Rate: 69 P: 48 CT: 183 QRS: 17 QRSD: 101 T: 38 QT: 406 QTc: 435 Interpretive Statements Sinus rhythm Probable anteroseptal infarct, recent Baseline wander in lead(s) V2 Compared to ECG 12/12/2016 16:23:07 ST (T wave) deviation no longer present Myocardial infarct finding still present Electronically Signed On 01-21-2017 14:07:22 CDT by Natanael Soriano [email or web address] <ELECTRONICALLY SIGNED> By: Natanael Soriano MD 01/21/17 1407 1031 1031 Natanael Soriano MD /EPI
[~2017-01-21 09:55] MED LIST changes: -HUMALOG100 UNIT/2 SUBQ
[2017-01-21 09:58] VITALS: BP 174/101
[2017-01-21] MEDS ORDERED: HUMALOG100 UNIT/2 SUBQ (10:28)
[2017-01-21 10:52] LABS: BASOPHILS 1.1 % (0.0-2.0); EOSINOPHILS 2.3 % (0.0-3.0); HEMATOCRIT 37.3 % (42.0-52.0); HEMOGLOBIN 12.5 gm/dL (14.0-18.0); MCH 27.5 pg (26.0-34.0); MCHC 33.5 g/dL (28.0-37.0); MONOCYTES 5.8 % (1.0-8.0); PLATELET COUNT 216 thou/uL (150-400); POLYS 70.8 % (36.0-66.0); RBC 4.55 mil/uL (4.50-6.00); RDW 13.9 % (10.5-14.5); WBC 5.6 thou/uL (4.0-11.0)
[2017-01-21 10:56] LABS: MANUAL DIFF NO
[2017-01-21 11:01] LABS: ANION GAP 4 mmol/L (7-16); BUN 69 mg/dL (7-18); CALCIUM 8.7 mg/dL (8.5-10.1); CHLORIDE 108 mmol/L (98-107); CO2 25 mmol/L (21-32); CREATININE 2.9 mg/dL (0.7-1.3); GLUCOSE 324 mg/dL (74-106); SODIUM 137 mmol/L (136-145)
[2017-01-21 11:02] LABS: POTASSIUM 6.5 mmol/L (3.5-5.1)
[2017-01-21 11:04] LABS: PROTIME 10.2 Seconds (9.3-11.4)
[2017-01-21 11:08] LABS: ALBUMIN 2.6 g/dL (3.4-5.0); ALKALINE PHOSPHATASE 121 U/L (46-116); SGOT 16 U/L (15-37); SGPT 29 U/L (30-65); TOTAL BILIRUBIN 0.3 mg/dL (<0.1-1.0); TOTAL PROTEIN 6.4 g/dL (6.4-8.2); TROPONIN-I < 0.04 ng/mL (<0.04-0.07)
[2017-01-21 12:06] LABS: ALBUMIN 2.6 g/dL (3.4-5.0); CALCIUM 8.8 mg/dL (8.5-10.1); CREATININE 2.9 mg/dL (0.7-1.3); PHOSPHORUS 4.2 mg/dL (2.5-4.9)
[2017-01-21 12:21] LABS: POTASSIUM 6.5 mmol/L (3.5-5.1)
[2017-01-21 13:06] VITALS: BP 183/73
[2017-01-21 13:37] VITALS: BP 173/78
[2017-01-21 18:28] LABS: CHOLESTEROL 147 mg/dL (<200); HDL CHOLESTEROL 59 mg/dL (>40); LDL CHOLESTEROL 70 mg/dL (<100); TC:HDL 2.5 Ratio (Not establshd); TRIGLYCERIDE 91 mg/dL (<150); VLDL 18 mg/dL (<40)
[2017-01-21 19:00] VITALS: BP 208/102
[2017-01-22 00:29] VITALS: BP 122/73
[2017-01-22 04:08] LABS: ALBUMIN 2.3 g/dL (3.4-5.0); CALCIUM 8.4 mg/dL (8.5-10.1); CREATININE 2.6 mg/dL (0.7-1.3); POTASSIUM 4.6 mmol/L (3.5-5.1); TOTAL BILIRUBIN 0.3 mg/dL (<0.1-1.0); TOTAL PROTEIN 5.2 g/dL (6.4-8.2)
[2017-01-22 04:34] VITALS: BP 129/70
[2017-01-22 05:11] LABS: GLYCOHEMOGLOBIN (HGB A1C) 7.9 % (4.8-5.6)
[2017-01-22 08:23] VITALS: BP 160/73
[2017-01-22] MEDS ORDERED: CLOPIDOGREL75 MG PO (11:52)
[2017-01-22] MEDS ORDERED: LABETALOL HCL200 MG PO (11:53)
[2017-01-22 12:35] VITALS: BP 160/73
== END 2017-01-22 13:51 | disposition home or self-care (01) | DRG 69 ==
LOC: ER 09:55 → 4W 11:32 → EROBS 11:32 → 4W 13:50 → ENTRNSPT 01-22 13:38 → EDTRNSPTSTS 01-22 13:42 → 4W 01-22 13:51
PROVIDERS: Hospitalist; Physician Assistant; Psychiatry & Neurology Neurology
DX: G45.9 Transient cerebral ischemic attack, unspecified (principal); N17.0 Acute kidney failure with tubular necrosis; E43 Unspecified severe protein-calorie malnutrition; N18.4 Chronic kidney disease, stage 4 (severe); M10.9 Gout, unspecified; I12.9 Hypertensive chronic kidney disease with stage 1 through stage 4 chronic kidney disease, or unspecified chronic kidney disease; E87.5 Hyperkalemia; I16.0 Hypertensive urgency; E11.22 Type 2 diabetes mellitus with diabetic chronic kidney disease; E78.5 Hyperlipidemia, unspecified; R29.810 Facial weakness; Z86.73 Personal history of transient ischemic attack (TIA), and cerebral infarction without residual deficits; Z79.82 Long term (current) use of aspirin; Z79.899 Other long term (current) drug therapy; Z79.4 Long term (current) use of insulin; Z88.8 Allergy status to other drugs, medicaments and biological substances; Z86.718 Personal history of other venous thrombosis and embolism; Z83.3 Family history of diabetes mellitus; Z82.49 Family history of ischemic heart disease and other diseases of the circulatory system; Z68.30 Body mass index [BMI] 30.0-30.9, adult
CPT/HCPCS: 10045

== ENCOUNTER 2017-10-25 09:58 | Emergency (ER) | payer BC ==
[~2017-10-25] VITALS: Ht 182.9 cm; Wt 103.0 kg
--- NOTE | ~2017-10-25 | EKG ---
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: Repairer Hairspring: : 1965 Requested By: Genoveva Peralta Order Number: [id number] MD: Tomás Newman Measurements Intervals [place] Rate: 86 P: 81 TN: 187 QRS: 78 QRSD: 97 T: 39 QT: 366 QTc: 438 Interpretive Statements Sinus rhythm Probable left atrial enlargement Probable anteroseptal infarct, old Compared to ECG 01/21/2017 10:31:17 No significant changes Electronically Signed On 10-25-2017 16:33:17 CDT by Tomás Newman [email or web address] <ELECTRONICALLY SIGNED> By: Tomás Newman MD, [facility] 10/25/17 1633 1030 1030 Tomás Newman MD, [facility] /EPI
[~2017-10-25 09:58] MED LIST changes: +CLOPIDOGREL75 MG PO; +HUMALOG100 UNIT/2 SUBQ
[2017-10-25 10:56] LABS: ABSOLUTE NEUTROPHILS 9.9 thou/uL (1.4-8.2); BASOPHILS 0.5 % (0.0-2.0); EOSINOPHILS 0.5 % (0.0-3.0); HEMATOCRIT 35.8 % (42.0-52.0); HEMOGLOBIN 11.6 gm/dL (14.0-18.0); LYMPHOCYTES 4.4 % (24.0-44.0); MCH 27.2 pg (26.0-34.0); MCHC 32.3 g/dL (28.0-37.0); MCV 84.3 fL (80.0-100.0); MONOCYTES 3.9 % (1.0-8.0); PLATELET COUNT 216 thou/uL (150-400); POLYS 90.7 % (36.0-66.0); RBC 4.25 mil/uL (4.50-6.00); RDW 14.1 % (10.5-14.5); WBC 10.9 thou/uL (4.0-11.0)
[2017-10-25 11:05] LABS: ANION GAP 9 mmol/L (7-16); BUN 77 mg/dL (7-18); CALCIUM 8.9 mg/dL (8.5-10.1); CHLORIDE 106 mmol/L (98-107); CO2 22 mmol/L (21-32); CREATININE 4.7 mg/dL (0.7-1.3); GLUCOSE 231 mg/dL (74-106); POTASSIUM 5.8 mmol/L (3.5-5.1); SODIUM 137 mmol/L (136-145)
[2017-10-25 11:15] LABS: TROPONIN-I <0.06 ng/mL (<0.06)
[2017-10-25] MEDS ORDERED: TESSALON PERLE100 MG PO (12:03)
[2017-10-25] MEDS ORDERED: VENTOLIN HFA 1818 GM INH (12:03)
== END 2017-10-25 13:06 | disposition home or self-care (01) ==
LOC: ER 09:58
PROVIDERS: Nurse Practitioner Family
DX: J06.9 Acute upper respiratory infection, unspecified (principal); J40 Bronchitis, not specified as acute or chronic; I12.9 Hypertensive chronic kidney disease with stage 1 through stage 4 chronic kidney disease, or unspecified chronic kidney disease; E11.22 Type 2 diabetes mellitus with diabetic chronic kidney disease; N18.4 Chronic kidney disease, stage 4 (severe); M10.9 Gout, unspecified; Z88.1 Allergy status to other antibiotic agents; Z88.5 Allergy status to narcotic agent

== ENCOUNTER 2017-11-01 10:24 | Inpatient (IN) | payer BC ==
[~2017-11-01] VITALS: Ht 182.9 cm; Wt 102.1 kg
--- NOTE | ~2017-11-01 | HC ---
[facility] [place] [address] CONSULTATION Name: HERNAN WOLF TREVIN Room #: 225-[facility] IN .R.#: [id number] Admission: 11/01/17 Attend Phys: Ben Starr MD Discharge: Date of : 63 Report #: [id number] THIS REPORT FOR: //name// CC: Vika Starr REASON FOR PRESENTATION: Feeling weak. REASON FOR CONSULTATION: End-stage renal disease. HISTORY OF PRESENT ILLNESS: A 52-year-old with history of end-stage renal disease due to diabetes mellitus and hypertension. He is well known to me. I saw him in the clinic last week. He was diagnosed to have bronchitis and has not been feeling well ever since. He denies chest pain or shortness of breath; however, when he exerts himself, he feels like he is short winded. He also reports weakness, tiredness, fatigue, and this has limited his daily activities. Blood sugar on arrival was extremely elevated. He denies any urinary symptoms. No change in the medications. No urinary symptoms. On arrival, he was found to have an elevated potassium at 5.4. His creatinine was above his baseline at 6. His blood sugar was elevated, and he is being admitted to further evaluate. PAST MEDICAL HISTORY: 1. Diabetes mellitus. 2. End-stage renal disease due to diabetes mellitus. 3. Hypertension. 4. Remote history of a stroke. 5. Left DVT. 6. Gout. FAMILY HISTORY: Significant for diabetes mellitus and hypertension. SOCIAL HISTORY: No drug or alcohol abuse. He lives with his . REVIEW OF SYSTEMS: GENERAL: Significant for fatigue. CARDIOVASCULAR: Dyspnea on exertion. PULMONARY: No cough or hemoptysis. GASTROINTESTINAL: No nausea or vomiting, but decreased p.o. intake. GENITOURINARY: No frequency, no urgency. SKIN: No rash or ulcerations. HEMATOLOGIC: No easy bruisability. MUSCULOSKELETAL: No joint pain. NEUROLOGICAL: Fatigue and weakness. MEDICATIONS: 1. Clonidine. 2. Valsartan. [address] [address] CONSULTATION Name: LUCIANOHERNAN [facility] Room #: [address] [place] [address] [place] ..#: [id number] Admission: 11/01/17 Attend Phys: Ben Starr MD Discharge: Date of : 63 Report #: [id number] 3. Labetalol. 4. Aspirin. 5. Chlorthalidone. 6. Insulin. PHYSICAL EXAMINATION: GENERAL: He is alert, oriented, in no apparent distress. VITAL SIGNS: Blood pressure is 160/70. HEAD AND NECK: No jugular venous distention, no bruit, no thyromegaly. CHEST: Clear to auscultation bilaterally. CARDIOVASCULAR: Regular with no rub detected. ABDOMEN: Soft, nontender with no hepatosplenomegaly. LOWER EXTREMITIES: No edema. NEUROLOGICAL: Intact cranial nerves. No deficit. LABORATORY DATA: Reviewed. Creatinine is 6. He is anemic with a hemoglobin of 9.8. Blood sugar is elevated. Chest x-rays with no abnormality. ASSESSMENT, IMPRESSION AND PLAN: 1. End-stage renal disease. 2. Weakness. 3. Possible uremia. 4. Diabetes mellitus. 5. Hypertension. 6. Resume the patient's outpatient medications. 7. Potassium issues have resolved. 8. Blood sugar control. 9. Blood pressure control. 10. If there is no improvement in his numbers within the next 24 hours, I will aim for a tunneled dialysis catheter and initiation of dialysis on Saturday. <ELECTRONICALLY SIGNED> By: Rolando Duong MD 11/04/17 0945 0751 1034 Rolando Duong MD /nt
--- NOTE | ~2017-11-01 | EKG ---
[address] [employer] [place] [address] ELECTROCARDIOGRAM REPORT Name: HERNAN WOLF III Room #: 225-P [facility] IN M.R.#: [id number] Admission: 11/01/17 Attend Phys: Ben Starr MD Discharge: Date of : 63 Report #: [id number] THIS REPORT FOR: //name// [facility] ED Test Date: 2017-11-01 Test Time: 10:53:49 Pat Name: HERNAN WOLF Department: Room: Gender: M Manager Strategic Development: DAVID : 1965 Requested By: Bong Mims Order Number: [id number] MD: Tomás Newman Measurements Intervals Spencer Rate: 80 P: 78 OR: 175 QRS: 51 QRSD: 107 T: 32 QT: 398 QTc: 460 Interpretive Statements Sinus rhythm Poor R wave progression Compared to ECG 10/25/2017 10:30:10 No significant change was found Electronically Signed On 11-04-2017 9:05:28 CDT by Tomás Newman [email or web address] <ELECTRONICALLY SIGNED> By: Tomás Newman MD, [facility] 11/04/17 0905 D: [id number] Tomás Newman MD, FACC /EPI
--- NOTE | ~2017-11-01 | 2DMMODE ---
[facility] [address] [place] [address] 2 D/M-MODE ECHOCARDIOGRAM Name: LUCIANOHERNAN III Room #: 225-P [facility] IN ..#: [id number] Admission: 11/01/17 Attend Phys: Ben Starr MD Discharge: Date of : 63 Date of Service: 11/07/17 1156 Report #: [id number] THIS REPORT FOR: //name// APPROVED REPORT Study performed: 11/07/2017 10:35:47 EXAM: Comprehensive 2D, Doppler, and color-flow Echocardiogram Patient Location: Bedside Room #: [facility] Status: routine BSA: 2.24 HR: 86 bpm BP: 135/73 mmHg Other Information Study Quality: Adequate Indications Diabetes Hypertension/HDD 2D Dimensions RVDd: 30.40 mm LVEF(%): 74.31 (>50%) IVSd: 15.47 (7-11mm) LVOT Diam: 25.64 (18-24mm) LVDd: 37.52 mm PWd: 15.70 (7-11mm) Ascending Ao: 31.67 (22-36mm) LVDs: 21.59 (25-40mm) Aortic Root: 34.37 mm IVC: 10.00 mm Kelly's LVEF: 74.31 % Volumes Left Atrial Volume (Systole) Single Plane 4CH: 35.71 mL Single Plane 2CH: 51.51 mL LA ESV Index: 21.00 mL/m2 Aortic Valve AoV Peak Royce.: 1.17 m/s AO Peak Gr.: 5.50 mmHg LVOT Max P.52 mmHg LVOT Max V: 1.06 m/s NAVEEN Vmax: 4.68 cm2 Mitral Valve E/A Ratio: 0.6 MV Decel. Time: 255.14 ms [facility] [place] [address] 2 D/M-MODE ECHOCARDIOGRAM Name: LUCIANOHERNAN [facility] Room #: 225-[facility] IN M.R.#: [id number] Admission: 11/01/17 Attend Phys: Ben Starr MD Discharge: Date of : 63 Date of Service: 11/07/17 1156 Report #: [id number] MV E Max Royce.: 0.56 m/s MV A Royce.: 0.93 m/s MV PHT: 73.99 ms IVRT: 99.19 ms Pulmonary Valve PV Peak Royce.: 1.06 m/s PV Peak Gr.: 4.51 mmHg Pulmonary Vein P Vein S: 0.67 m/s P Vein A: 0.44 m/s P Vein D: 0.49 m/s P Vein A Dur.: 71.5 msec P Vein S/D Ratio: 1.37 Tricuspid Valve RAP Estimate: 5.00 mmHg Left Ventricle The left ventricle is normal size. Moderate concentric left ventricular hypertrophy. The left ventricular systolic function is normal. The left ventricular ejection fraction is within the normal range. LVEF is 60-65%. Mild diastolic dysfunction is present (impaired relaxation pattern). Right Ventricle The right ventricle is normal size. The right ventricular systolic function is normal. Atria The left atrium size is normal. The right atrium size is normal. Catheter tip is visualized in the right atrium. Aortic Valve The aortic valve is normal in structure. Trace aortic regurgitation. There is no aortic valvular stenosis. Mitral Valve The mitral valve is normal in structure. There is no mitral valve regurgitation noted. No evidence of mitral valve stenosis. Tricuspid Valve The tricuspid valve is normal in structure. There is no tricuspid valve regurgitation noted. Unable to assess PA pressure. Pulmonic Valve The pulmonary valve is normal in structure. Mild pulmonic regurgitation. [facility] [address] [place] [address] 2 D/M-MODE ECHOCARDIOGRAM Name: HERNAN WOLF III Room #: 225-P [facility] IN ..#: [id number] Admission: 11/01/17 Attend Phys: Ben Starr MD Discharge: Date of : 63 Date of Service: 11/07/17 1156 Report #: [id number] Great Vessels The aortic root is normal in size. IVC is normal in size and collapses >50% with inspiration. Pericardium There is no pericardial effusion. <Conclusion> The left ventricle is normal size. LVEF is 60-65%. The right atrium size is normal. Catheter tip is visualized in the right atrium. The aortic valve is normal in structure. Trace aortic regurgitation. The mitral valve is normal in structure. The tricuspid valve is normal in structure. The pulmonary valve is normal in structure. Mild pulmonic regurgitation. There is no pericardial effusion. <ELECTRONICALLY SIGNED> By: Neeraj Vidales MD 11/07/17 1156 1156 1156 Neeraj Vidales MD /INF
[~2017-11-01 10:24] MED LIST changes: +TESSALON PERLE100 MG PO; +VENTOLIN HFA 1818 GM INH
[2017-11-01 10:25] VITALS: BP 115/68
[2017-11-01 11:13] LABS: HEMATOCRIT 31.6 % (42.0-52.0); HEMOGLOBIN 10.6 gm/dL (14.0-18.0); MCH 27.3 pg (26.0-34.0); MCHC 33.6 g/dL (28.0-37.0); MCV 81.4 fL (80.0-100.0); PLATELET COUNT 342 thou/uL (150-400); RBC 3.88 mil/uL (4.50-6.00); RDW 13.9 % (10.5-14.5); WBC 12.5 thou/uL (4.0-11.0)
[2017-11-01 11:46] LABS: ANION GAP 11 mmol/L (7-16); BUN 98 mg/dL (7-18); CHLORIDE 100 mmol/L (98-107); CO2 21 mmol/L (21-32); GLUCOSE 419 mg/dL (74-106); POTASSIUM 5.4 mmol/L (3.5-5.1); SODIUM 132 mmol/L (136-145)
[2017-11-01 11:57] LABS: ALBUMIN 1.7 g/dL (3.4-5.0); SGOT 17 U/L (15-37); SGPT 42 U/L (30-65); TOTAL BILIRUBIN 0.4 mg/dL (<0.1-1.0); TOTAL PROTEIN 7.1 g/dL (6.4-8.2); TROPONIN-I <0.06 ng/mL (<0.06)
[2017-11-01 12:09] LABS: ABSOLUTE NEUTROPHILS 10.4 thou/uL (1.4-8.2); ANISOCYTOSIS SLIGHT
[2017-11-01] MEDS ORDERED: VITAMIN D2000 UNI1 PO (12:13)
[2017-11-01 12:38] VITALS: BP 140/55
[2017-11-01 13:23] VITALS: BP 140/55
[2017-11-01 13:45] VITALS: BP 140/55
[2017-11-01 16:31] VITALS: BP 144/99
[2017-11-01 20:43] VITALS: BP 142/73
[2017-11-02 05:34] LABS: HEMOGLOBIN 9.8 gm/dL (14.0-18.0); MCH 27.1 pg (26.0-34.0); MCHC 33.7 g/dL (28.0-37.0); MCV 80.4 fL (80.0-100.0); RBC 3.61 mil/uL (4.50-6.00); RDW 13.6 % (10.5-14.5); WBC 12.4 thou/uL (4.0-11.0)
[2017-11-02 05:48] LABS: ALBUMIN 1.5 g/dL (3.4-5.0); CALCIUM 8.9 mg/dL (8.5-10.1); PHOSPHORUS 5.1 mg/dL (2.5-4.9); POTASSIUM 4.7 mmol/L (3.5-5.1)
[2017-11-02 05:49] VITALS: BP 190/81
[2017-11-02 08:19] VITALS: BP 169/82
[2017-11-02 15:43] VITALS: BP 160/77
[2017-11-02 19:55] VITALS: BP 179/76
[2017-11-03 00:09] VITALS: BP 115/61
[2017-11-03 04:22] VITALS: BP 130/47
[2017-11-03 07:50] VITALS: BP 177/74
[2017-11-03 08:02] LABS: ABSOLUTE NEUTROPHILS 12.8 thou/uL (1.4-8.2); BASOPHILS 0.6 % (0.0-2.0); EOSINOPHILS 0.5 % (0.0-3.0); HEMATOCRIT 27.1 % (42.0-52.0); HEMOGLOBIN 9.3 gm/dL (14.0-18.0); MCH 27.3 pg (26.0-34.0); MCHC 34.2 g/dL (28.0-37.0); MCV 79.8 fL (80.0-100.0); MONOCYTES 6.7 % (1.0-8.0); PLATELET COUNT 314 thou/uL (150-400); POLYS 82.2 % (36.0-66.0); RDW 13.6 % (10.5-14.5); WBC 15.5 thou/uL (4.0-11.0)
[2017-11-03 08:07] LABS: ALBUMIN 1.4 g/dL (3.4-5.0); CALCIUM 8.7 mg/dL (8.5-10.1); CREATININE 5.9 mg/dL (0.7-1.3); PHOSPHORUS 5.1 mg/dL (2.5-4.9); POTASSIUM 4.8 mmol/L (3.5-5.1)
[2017-11-03 12:02] LABS: URINE BILIRUBIN NEGATIVE (Negative); URINE BLOOD 1+ (Negative); URINE CLARITY CLEAR; URINE COLOR YELLOW; URINE GLUCOSE-RANDOM* TRACE (Negative); URINE KETONES NEGATIVE (Negative); URINE LEUKOCYTES-REFLEX NEGATIVE (Negative); URINE NITRITE-REFLEX NEGATIVE (Negative); URINE PROTEIN (DIPSTICK) 3+ (Negative); URINE UROBILINOGEN 0.2 E.U./dl (0.2-1.0)
[2017-11-03 12:20] LABS: CASTS None Seen /LPF (None Seen); CRYSTALS None Seen /LPF (None Seen); SQUAMOUS None Seen /LPF (0-3)
[2017-11-03 12:21] LABS: BACTERIA-REFLEX 1-9 Few /HPF (None Seen); URINE RBC 0-2 Rare /HPF (0-2); URINE WBC-REFLEX 0-5 Rare /HPF (0-5)
[2017-11-03 16:05] VITALS: BP 156/99
[2017-11-03 21:00] VITALS: BP 198/104
[2017-11-03 22:22] VITALS: BP 173/85
[2017-11-04 07:19] LABS: ALBUMIN 1.5 g/dL (3.4-5.0); CALCIUM 8.9 mg/dL (8.5-10.1); CREATININE 5.8 mg/dL (0.7-1.3); PHOSPHORUS 5.7 mg/dL (2.5-4.9); POTASSIUM 4.6 mmol/L (3.5-5.1)
[2017-11-04 08:20] VITALS: BP 161/86
[2017-11-04 09:15] LABS: ABSOLUTE NEUTROPHILS 9.7 thou/uL (1.4-8.2); BASOPHILS 0.6 % (0.0-2.0); EOSINOPHILS 0.6 % (0.0-3.0); HEMATOCRIT 28.9 % (42.0-52.0); HEMOGLOBIN 9.7 gm/dL (14.0-18.0); LYMPHOCYTES 10.2 % (24.0-44.0); MCH 27.2 pg (26.0-34.0); MCHC 33.7 g/dL (28.0-37.0); MCV 80.7 fL (80.0-100.0); MONOCYTES 5.8 % (1.0-8.0); PLATELET COUNT 315 thou/uL (150-400); POLYS 82.8 % (36.0-66.0); RBC 3.58 mil/uL (4.50-6.00); RDW 13.7 % (10.5-14.5); WBC 11.8 thou/uL (4.0-11.0)
[2017-11-04 13:27] VITALS: BP 151/63
[2017-11-04 20:08] VITALS: BP 166/88
[2017-11-05 07:17] LABS: ALBUMIN 1.5 g/dL (3.4-5.0); CALCIUM 8.4 mg/dL (8.5-10.1); PHOSPHORUS 5.7 mg/dL (2.5-4.9); POTASSIUM 4.8 mmol/L (3.5-5.1)
[2017-11-05 08:41] VITALS: BP 152/83
[2017-11-05 19:57] VITALS: BP 144/80
[2017-11-06 07:30] VITALS: BP 131/81
[2017-11-06 08:01] LABS: CALCIUM 8.7 mg/dL (8.5-10.1); POTASSIUM 4.4 mmol/L (3.5-5.1)
[2017-11-06 20:30] VITALS: BP 171/86
[2017-11-07 07:25] VITALS: BP 135/73
[2017-11-07 07:34] LABS: CALCIUM 8.6 mg/dL (8.5-10.1); CREATININE 4.6 mg/dL (0.7-1.3); POTASSIUM 4.2 mmol/L (3.5-5.1)
[2017-11-07 07:42] LABS: BASOPHILS 1.1 % (0.0-2.0); EOSINOPHILS 1.3 % (0.0-3.0); HEMATOCRIT 26.5 % (42.0-52.0); HEMOGLOBIN 9.2 gm/dL (14.0-18.0); LYMPHOCYTES 17.3 % (24.0-44.0); MCH 27.6 pg (26.0-34.0); MCHC 34.7 g/dL (28.0-37.0); MCV 79.6 fL (80.0-100.0); MONOCYTES 9.5 % (1.0-8.0); PLATELET COUNT 317 thou/uL (150-400); POLYS 70.8 % (36.0-66.0); RBC 3.33 mil/uL (4.50-6.00); RDW 13.5 % (10.5-14.5); WBC 7.1 thou/uL (4.0-11.0)
[2017-11-07 10:00] LABS: HEPATITIS B SURFACE AG Negative (Negative)
[2017-11-07 10:01] LABS: HEP B SURFACE Ab(ANTI-HBS Non Reactive (())
[2017-11-07] MEDS ORDERED: NEPHROCAPS SOFT1 CAP PO (10:51)
[2017-11-07] MEDS ORDERED: RENVELA800 MG PO (10:51)
[2017-11-07] MEDS ORDERED: AMLODIPINE BESYL5 M1 PO (10:51)
[2017-11-07] MEDS ORDERED: AZITHROMYCIN 2250 MG PO (10:51)
[2017-11-07] MEDS ORDERED: ASPIR 8181 MG PO (10:52)
[2017-11-07 15:47] VITALS: BP 135/73
== END 2017-11-07 16:08 | DRG 673 ==
LOC: ER 10:24 → EROBS 11:56 → SICU 11:56 → 4E 14:31 → SICU 11-03 20:08
PROVIDERS: Emergency Medicine; Hospitalist; Internal Medicine; Internal Medicine Geriatric Medicine
PROC: B5131ZA Fluoroscopy of Right Jugular Veins using Low Osmolar Contrast, Guidance (ICD-10-PCS; principal; 2017-11-05)
PROC: 5A1D70Z Performance of Urinary Filtration, Intermittent, Less than 6 Hours Per Day (ICD-10-PCS; principal; 2017-11-05)
PROC: 0JH63XZ Insertion of Tunneled Vascular Access Device into Chest Subcutaneous Tissue and Fascia, Percutaneous Approach (ICD-10-PCS; principal; 2017-11-05)
PROC: B548ZZA Ultrasonography of Superior Vena Cava, Guidance (ICD-10-PCS; principal; 2017-11-05)
PROC: 05HM33Z Insertion of Infusion Device into Right Internal Jugular Vein, Percutaneous Approach (ICD-10-PCS; principal; 2017-11-05)
PROC: 5A1D70Z Performance of Urinary Filtration, Intermittent, Less than 6 Hours Per Day (ICD-10-PCS; 2017-11-06)
PROC: 5A1D70Z Performance of Urinary Filtration, Intermittent, Less than 6 Hours Per Day (ICD-10-PCS; 2017-11-07)
DX: N17.9 Acute kidney failure, unspecified (principal); E43 Unspecified severe protein-calorie malnutrition; I12.0 Hypertensive chronic kidney disease with stage 5 chronic kidney disease or end stage renal disease; N18.6 End stage renal disease; E11.22 Type 2 diabetes mellitus with diabetic chronic kidney disease; M10.9 Gout, unspecified; E87.5 Hyperkalemia; E11.65 Type 2 diabetes mellitus with hyperglycemia; K59.00 Constipation, unspecified; D72.829 Elevated white blood cell count, unspecified; J40 Bronchitis, not specified as acute or chronic; Z68.30 Body mass index [BMI] 30.0-30.9, adult; Z86.73 Personal history of transient ischemic attack (TIA), and cerebral infarction without residual deficits; Z88.6 Allergy status to analgesic agent; Z88.8 Allergy status to other drugs, medicaments and biological substances; Z86.718 Personal history of other venous thrombosis and embolism; Z82.49 Family history of ischemic heart disease and other diseases of the circulatory system; Z83.3 Family history of diabetes mellitus; Z99.2 Dependence on renal dialysis
CPT/HCPCS: 10183; 15002; 32100

== ENCOUNTER 2017-11-07 15:18 | Inpatient (IN) | payer BC ==
[~2017-11-07] VITALS: Ht 182.9 cm; Wt 98.4 kg
--- NOTE | ~2017-11-07 | PLAN ---
[facility] [place] [address] REHAB UNIT PLAN OF CARE Name: HERNAN WOLF III Room #: 510-P [facility] IN M.R.#: [id number] Admission: 11/07/17 Attend Phys: Dilan Marinelli MD Discharge: 11/12/17 Date of : 63 Report #: [id number] THIS REPORT FOR: //name// CC: Dilan Herrmann DATE OF SERVICE: 11/09/2017 PROGRESS NOTE/OVERALL PLAN OF CARE SUBJECTIVE: The patient was seen earlier, in no distress. Last recorded temperature 37.1, pulse 89, respirations 18, blood pressure 167/90, is in no distress. He has been working in therapies with transfers, standby assistance. Gait min assist 50 feet without a device. In occupational therapy, lower body dressing in supervision. ASSESSMENT: 1. Medical complexity with generalized debilitation. 2. Gait instability. 3. Acute renal failure superimposed on chronic kidney disease with beginning dialysis. 4. Sputum positive for H. influenza was on IV ceftriaxone. 5. Prior history of a CVA, 11/22/2016 with visual deficits. 6. Diabetes mellitus type 2. 7. Hypertension. 8. Hyperlipidemia. 9. Gout. PLAN: The overall plan of care is based on the preadmission screen, post-admission physician evaluation and information garnered from therapy assessments. 1. Estimated length of stay is probably at least 10-14 days. 2. Medical prognosis is reasonably good. 3. Anticipated interventions includes the interdisciplinary acute inpatient rehabilitation program with the goal of maximizing the patient's functional independence, so that he can hopefully return back to his prior living situation. We will have PT and OT involved as well as rehabilitation nursing assisting regarding medication management, skin care prophylaxis, bowel and bladder issues, nursing education. The rest of the interdisciplinary rehabilitation team will be involved. 4. Anticipated functional outcomes would be for the patient to become modified independent with transfers, mobility and ADLs so that he can return back to the home setting. 5. Discharge destination is back home where he lives in a single story home with his . 6. Expected therapy by discipline includes PT and OT 1-1/2 hours per day each [address] [address] REHAB UNIT PLAN OF CARE Name: LUCIANOHERNAN TREVIN Room #: 510-P [facility] IN ..#: [id number] Admission: 11/07/17 Attend Phys: Dilan Marinelli MD Discharge: 11/12/17 Date of : 63 Report #: [id number] five days a week throughout the duration at the acute inpatient rehabilitation stay. <ELECTRONICALLY SIGNED> By: Dilan Marinelli MD 11/13/17 1736 0922 2249 Dilan Marinelli MD /PMT
--- NOTE | ~2017-11-07 | H ---
[facility] [place] [address] HISTORY AND PHYSICAL Name: HERNAN WOLF III Room #: 510-P [facility] IN M.R.#: [id number] Admission: 11/07/17 Attend Phys: Dilan Marinelli MD Discharge: 11/12/17 Date of : 63 Report #: [id number] THIS REPORT FOR: //name// CC: Dilan Herrmann DATE OF SERVICE: 11/07/2017 HISTORY OF PRESENT ILLNESS: The patient is a 52-year-old -Bur[place] male who originally presented to [facility] on 11/01/2017 with generalized malaise and not feeling well and weakness. He was found to have worsening of his chronic kidney disease with a creatinine of 6 and a potassium of 5.4. Nephrology saw him and proceeded with a tunneled dialysis catheter. He was noted to have acute on chronic renal failure with dialysis. He has type 2 diabetes mellitus, hypertension, was noted to have gait instability with decreased functional mobility and ADLs. His sputum was noted to be positive for H. influenza. He was treated with IV ceftriaxone with transition to the Z-DARYA. He has occasional staggers and scissoring when up for functional mobility. He has been admitted for acute in-hospital inpatient rehabilitation. PAST MEDICAL HISTORY: Includes diabetes mellitus type 2 diagnosed at age 27, hypertension. He has had sports injuries, apparently had hip surgery, developed DVT in left leg, and history of gout. He was noted to have a stroke in 2017 with visual deficits. ALLERGIES: TYLENOL, HYDROCODONE ARE NOTED. MEDICATIONS: Please see the full medication listing. This includes vitamins, herbals, and supplements. PAST SURGICAL HISTORY: Includes Achilles tendon repair, right hip surgery, rotator cuff repair. FAMILY HISTORY: Heart disease, diabetes mellitus and hypertension. HABITS: Nonsmoker. Occasional alcohol. SOCIAL HISTORY: Lives in a single story home. One entry stair. No steps inside. Lives with . REVIEW OF SYSTEMS: No current complaints of chest pain, shortness of breath or abdominal discomfort. Notes weakness with decreased stability when up. GENERAL: Pleasant 52-year-old -Burmese male in no obvious distress. VITAL SIGNS: Last recorded temperature is 99.7, pulse 86, respirations 18, blood pressure 134/82. Facies appeared symmetric. HEENT: Appeared to be benign. [address] [address] HISTORY AND PHYSICAL Name: HERNAN WOLF [facility] Room #: [address] [place] [address] [place] .R.#: [id number] Admission: 11/07/17 Attend Phys: Dilan Marinelli MD Discharge: 11/12/17 Date of : 63 Report #: [id number] CHEST: Sounded clear to auscultation. CARDIOVASCULAR: Regular rate and rhythm. ABDOMEN: Bowel sounds positive, nontender. Complains of some constipation. GENITOURINARY AND RECTAL: Deferred. He does have the IV port right upper chest. EXTREMITIES: Functional range of motion of the upper and lower extremities, strength is grade 4-/5. DTRs are trace to 1. Lower extremities, negative Homans. Tone appeared to be intact. He is needing min assist with basic functional mobility skills with transfers and short distance ambulation. ASSESSMENT: A 52-year-old -Burmese male admitted with the following problem list: 1. Medical complexity with generalized debilitation. 2. Gait instability. 3. Acute renal failure on chronic kidney disease with beginning dialysis. 4. Sputum positive for H. influenza, was on IV ceftriaxone. 5. Prior history of a cerebrovascular accident on 11/22/2016 with visual deficits. 6. Diabetes mellitus type 2. 7. Hypertension. 8. Hyperlipidemia. 9. Gout. PLAN: The patient is admitted for in-hospital inpatient rehabilitation. From a postadmission physician evaluation perspective, there are no relevant changes since the preadmission screening. Please see the above review of prior and current functional conditions and comorbidities. As far as risk of complications, the patient has the above noted comorbidities. Initial plan of care involves the interdisciplinary acute inpatient rehabilitation program with the goal of improving strength, endurance, functional mobility and ADL independence, balance, safety, so that he can return back to the home setting. Goal would be independent with minimal needed gait aids. Measurable functional goals again to be independent at least initially at the walker level with further progress from there. PROGNOSIS: Reasonably good with estimated length of stay probably just 7-10 days, maybe up 10-14 days if warranted. Potential barriers would include his functional deficits and above noted comorbidities. The patient meets diagnostic criteria for an acute in-hospital inpatient rehabilitation stay. He meets the medical necessity criteria and we will have the multiple curriculum consultant physicians continue to follow. He does have the [address] [address] HISTORY AND PHYSICAL Name: HERNAN WOLF III Room #: 510-P [facility] IN M.R.#: [id number] Admission: 11/07/17 Attend Phys: Dilan Marinelli MD Discharge: 11/12/17 Date of : 63 Report #: [id number] tolerance for therapies and has appropriate discharge goals back to the home setting. Complains of constipation. We will add Dulcolax tabs and senna. <ELECTRONICALLY SIGNED> By: Dilan Marinelli MD 11/13/17 1736 0831 0859 Dilan Marinelli MD /nt
--- NOTE | ~2017-11-07 | HC ---
[facility] [place] [address] CONSULTATION Name: HERNAN WOLF III Room #: 510-P [facility] IN M.R.#: [id number] Admission: 11/07/17 Attend Phys: Dilan Marinelli MD Discharge: Date of : 63 Report #: [id number] THIS REPORT FOR: //name// CC: Dilan Herrmann DATE OF SERVICE: 11/10/2017 NEUROBEHAVIORAL STATUS EXAM: ATTENDING PHYSICIAN: Dilan Marinelli MD. SUPERVISOR SHOW OPERATIONS: Epifanio Gunter, PhD. CLINICAL PRESENTATION: The patient is a 52-year-old male admitted to the rehabilitation unit at [facility] for a comprehensive inpatient rehabilitation program to improve functional mobility and activities of daily living and self-care secondary to deficits from gait instability, medical complexity and general debility. His diagnoses on admission also includes gait instability, acute renal failure for chronic kidney disease and beginning of dialysis, prior history of CVA on 11/22/2016 with visual deficits, diabetes mellitus type 2, hypertension, hyperlipidemia and gout. A complete description of his medical condition, history and medications can be found in his medical record. Neuropsychological consultation was requested to provide assistance in the assessment of cognitive and emotional status and to provide recommendations and services. Prior to his most recent admission, he was on disability and living with his in their home. The patient is a high school graduate. 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 He has 3 children. The patient is from a family with five siblings. He reports a family history of alcohol/drug abuse and mental illness. TECHNIQUES UTILIZED: Clinical interview, review of medical records, staff consultation and behavioral observation, mini mental status exam 2 standard version and verbal fluency assessment (category and letter). EXAMINATION FINDINGS: The patient was alert and cooperative with the assessment. He accurately described events surrounding his admission. The patient reports feeling frustrated and somewhat angry in regard to his medical condition and well-being. Issues of adjustment to disability are described. He is feeling frustrated and anxious that regardless of his efforts to eat well and exercise, his condition continues to deteriorate. Additional symptoms include depression and anxiety. He does not report difficulty with memory or appetite. Sleep is more difficult because of anxiety. Longstanding history of anxiety [facility] [address] [place] [address] CONSULTATION Name: HERNAN WOLF III Room #: 510-P [facility] IN .R.#: [id number] Admission: 11/07/17 Attend Phys: Dilan Marinelli MD Discharge: Date of : 63 Report #: [id number] disorder is described. Performance on the MMSE 2 brief version suggest subtle to mild deficits with a raw score of 13 of 16. He was 3 of 3 for initial registration, 4 of 5 for orientation to time, 5 of [address] and 1 of 3 for immediate recall of 3 items after a brief time delay and distraction. His performance improved on the standard version of the MMSE 2 to a raw score 26 of 30, which is a T score of 43. He was 4 of 5 for serial 7's. The patient was able to write a sentence, copy a simple geometric design. He was able to set the hands of a clock at a designated time. Performance in verbal fluency is inconsistent. Letter fluency was in the borderline range with a T score of 30 and percentile rank of 2. Category fluency is within normal limits with a raw score of 39, T score of 47. Overall, verbal fluency was in the mild range of impairment with a T score of 36. The patient appears to present with deficits in executive functioning. Variability in immediate recall is also likely. DIAGNOSTIC IMPRESSION: 1. Mild neurocognitive disorder, unspecified, without behavior disorder. 2. Unspecified anxiety disorder with depression. RECOMMENDATIONS: The patient will benefit from the use of antidepressant medication and psychological counseling. Counseling should focus on adjustment to disability. The use of compensatory strategies and finding something meaningful to come from his illness will also assist his overall adjustment. Outpatient counseling will be helpful. Psychological counseling will be helpful to improve his recognition of strengths and resources that have not been affected by the diabetes and kidney failure as well as looking at his current medical condition as an opportunity for growth and development. Thank you very much for allowing me to provide the consultation on this patient. By: [id number] [id number] Epifanio Gunter, PhD /nt
[~2017-11-07 15:18] MED LIST changes: +AMLODIPINE BESYL5 M1 PO; +ASPIR 8181 MG PO; +AZITHROMYCIN 2250 MG PO; +NEPHROCAPS SOFT1 CAP PO; +RENVELA800 MG PO; +VITAMIN D2000 UNI1 PO
[2017-11-07 16:35] VITALS: BP 124/75
[2017-11-07 20:21] VITALS: BP 134/82
[2017-11-08 06:48] LABS: HEMATOCRIT 29.1 % (42.0-52.0); HEMOGLOBIN 9.8 gm/dL (14.0-18.0); MCH 27.8 pg (26.0-34.0); MCHC 33.6 g/dL (28.0-37.0); MCV 82.8 fL (80.0-100.0); RBC 3.52 mil/uL (4.50-6.00); RDW 13.4 % (10.5-14.5); WBC 8.1 thou/uL (4.0-11.0)
[2017-11-08 06:59] LABS: CALCIUM 8.9 mg/dL (8.5-10.1); CREATININE 5.4 mg/dL (0.7-1.3); POTASSIUM 4.1 mmol/L (3.5-5.1)
[2017-11-08 07:01] LABS: % SATURATION 26 % (20-39); IRON 31 ug/dL (65-175); TIBC 120 ug/dL (250-450)
[2017-11-08 07:30] VITALS: BP 116/62
[2017-11-08 20:07] VITALS: BP 184/93
[2017-11-08 22:06] VITALS: BP 167/90
[2017-11-09 07:45] VITALS: BP 147/80
[2017-11-09 17:10] LABS: GLYCOHEMOGLOBIN (HGB A1C) 9.1 % (4.8-5.6)
[2017-11-09 19:48] VITALS: BP 152/80
[2017-11-10 07:15] VITALS: BP 146/73
[2017-11-10 19:57] VITALS: BP 161/78
[2017-11-11 07:30] VITALS: BP 173/89
[2017-11-11 16:23] VITALS: BP 155/74
[2017-11-11 19:32] VITALS: BP 179/87
[2017-11-12 05:24] LABS: ABSOLUTE NEUTROPHILS 3.6 thou/uL (1.4-8.2); BASOPHILS 1.4 % (0.0-2.0); EOSINOPHILS 1.5 % (0.0-3.0); HEMATOCRIT 26.9 % (42.0-52.0); HEMOGLOBIN 9.1 gm/dL (14.0-18.0); LYMPHOCYTES 21.2 % (24.0-44.0); MCHC 33.8 g/dL (28.0-37.0); MCV 82.9 fL (80.0-100.0); MONOCYTES 9.9 % (1.0-8.0); PLATELET COUNT 367 thou/uL (150-400); RBC 3.24 mil/uL (4.50-6.00); RDW 13.2 % (10.5-14.5); WBC 5.5 thou/uL (4.0-11.0)
[2017-11-12 05:38] LABS: CALCIUM 8.7 mg/dL (8.5-10.1); CREATININE 4.6 mg/dL (0.7-1.3); MAGNESIUM 2.5 mg/dL (1.8-2.4); POTASSIUM 4.4 mmol/L (3.5-5.1)
[2017-11-12 08:15] VITALS: BP 137/85
[2017-11-12] MEDS ORDERED: CATAPRES0.2 MG PO (13:32)
[2017-11-12] MEDS ORDERED: AMLODIPINE BESYL5 M1 PO (13:32)
[2017-11-12] MEDS ORDERED: COREG6.25 MG PO (13:32)
[2017-11-12 13:48] VITALS: BP 137/85
[2017-11-12 13:50] VITALS: BP 137/85
[2017-11-12 14:33] VITALS: BP 137/85
[2017-11-12] MEDS ORDERED: RENVELA800 MG PO (17:12)
== END 2017-11-12 18:10 | disposition home or self-care (01) | DRG 91 ==
LOC: ENTRNSPT 11-12 17:28
PROVIDERS: Nurse Practitioner; Nurse Practitioner Family
PROC: 5A1D70Z Performance of Urinary Filtration, Intermittent, Less than 6 Hours Per Day (ICD-10-PCS; principal; 2017-11-09)
PROC: 5A1D70Z Performance of Urinary Filtration, Intermittent, Less than 6 Hours Per Day (ICD-10-PCS; 2017-11-12)
DX: R26.89 Other abnormalities of gait and mobility (principal); N18.6 End stage renal disease; N17.9 Acute kidney failure, unspecified; I12.0 Hypertensive chronic kidney disease with stage 5 chronic kidney disease or end stage renal disease; R53.81 Other malaise; Z99.2 Dependence on renal dialysis; R26.9 Unspecified abnormalities of gait and mobility; E78.5 Hyperlipidemia, unspecified; E11.22 Type 2 diabetes mellitus with diabetic chronic kidney disease; M10.9 Gout, unspecified; F41.8 Other specified anxiety disorders; E87.5 Hyperkalemia; K59.00 Constipation, unspecified; I95.1 Orthostatic hypotension; B96.3 Hemophilus influenzae [H. influenzae] as the cause of diseases classified elsewhere; D64.9 Anemia, unspecified; Z88.6 Allergy status to analgesic agent; Z88.8 Allergy status to other drugs, medicaments and biological substances; Z83.3 Family history of diabetes mellitus; Z82.49 Family history of ischemic heart disease and other diseases of the circulatory system; Z86.718 Personal history of other venous thrombosis and embolism; Z79.01 Long term (current) use of anticoagulants; I69.312 Visuospatial deficit and spatial neglect following cerebral infarction; Z79.02 Long term (current) use of antithrombotics/antiplatelets
CPT/HCPCS: 10112; 32100

== ENCOUNTER 2018-02-18 16:11 | Emergency (ER) | payer BC ==
[~2018-02-18] VITALS: Ht 182.9 cm; Wt 98.4 kg
--- NOTE | ~2018-02-18 | EKG ---
[place] [address] [address] [facility] [address] [place] [address] ELECTROCARDIOGRAM REPORT Name: HERNAN WOLF TREVIN Room #: [facility] KAYLA Nazario#: [id number] Admission: 02/18/18 Attend Phys: Discharge: 02/18/18 Date of : 63 Report #: [id number] THIS REPORT FOR: //name// [facility] ED Test Date: 2018-02-18 Test Time: 16:49:33 Pat Name: HERNAN WOLF Department: Room: Gender: Field Administrative Assistant: LYLE : 1965 Requested By: Dona Camacho Order Number: [id number] MD: Tomás Newman Measurements Intervals Christmas Rate: 89 P: 65 AK: 189 QRS: 31 QRSD: 99 T: 38 QT: 363 QTc: 442 Interpretive Statements Sinus rhythm Poor R wave progression Compared to ECG 11/01/2017 10:53:49 No significant change was found Electronically Signed On 02-19-2018 8:59:46 CDT by Tomás Newman [email or web address] <ELECTRONICALLY SIGNED> By: Tomás Newman MD, [facility] 02/19/18 0859 1649 1649 Tomás Newman MD, FACC /EPI
[~2018-02-18 16:11] MED LIST changes: +ALLOPURINOL 10100 M1 PO; +BENICAR20 MG PO; +CARVEDILOL12.5 MG PO; +COREG6.25 MG PO; +CRESTOR20 MG PO; +PLAVIX 75 MG TA75 M1 PO; +VITAMIN D2000 UNIT PO; +[UNRECOGNIZED DRUG - OTHER] PO
[2018-02-18 17:08] LABS: ABSOLUTE NEUTROPHILS 4.5 thou/uL (1.4-8.2); BASOPHILS 0.6 % (0.0-2.0); EOSINOPHILS 0.8 % (0.0-3.0); HEMATOCRIT 36.7 % (42.0-52.0); HEMOGLOBIN 12.4 gm/dL (14.0-18.0); LYMPHOCYTES 10.2 % (24.0-44.0); MCH 27.1 pg (26.0-34.0); MCHC 33.9 g/dL (28.0-37.0); MCV 79.9 fL (80.0-100.0); MONOCYTES 6.9 % (1.0-8.0); PLATELET COUNT 159 thou/uL (150-400); POLYS 81.5 % (36.0-66.0); RBC 4.59 mil/uL (4.50-6.00); RDW 14.5 % (10.5-14.5); WBC 5.5 thou/uL (4.0-11.0)
[2018-02-18 17:14] LABS: CALCIUM 8.6 mg/dL (8.5-10.1); POTASSIUM 4.1 mmol/L (3.5-5.1)
[2018-02-18] MEDS ORDERED: ALPHAGAN P5 ML OPHTHALMIC (22:08)
[2018-02-18] MEDS ORDERED: XALATAN2.5 ML OPHTHALMIC (22:08)
[2018-02-18] MEDS ORDERED: COSOPT PF EYE1 EACH OPHTHALMIC (22:08)
== END 2018-02-18 22:28 | disposition home or self-care (01) ==
LOC: ER 16:11
PROVIDERS: Emergency Medicine
DX: H57.12 Ocular pain, left eye (principal); H57.89 Other specified disorders of eye and adnexa; E11.22 Type 2 diabetes mellitus with diabetic chronic kidney disease; I12.0 Hypertensive chronic kidney disease with stage 5 chronic kidney disease or end stage renal disease; N18.6 End stage renal disease; Z99.2 Dependence on renal dialysis; Z79.01 Long term (current) use of anticoagulants; Z79.899 Other long term (current) drug therapy; Z86.73 Personal history of transient ischemic attack (TIA), and cerebral infarction without residual deficits; Z79.4 Long term (current) use of insulin

== ENCOUNTER 2020-03-14 21:50 | Emergency (ER) | payer BC, OTHER ==
[~2020-03-14] VITALS: Ht 182.9 cm; Wt 99.3 kg
[~2020-03-14 21:50] MED LIST changes: +ALPHAGAN P5 ML OPHTHALMIC; +COSOPT PF EYE1 EACH OPHTHALMIC; +XALATAN2.5 ML OPHTHALMIC
[2020-03-14 23:45] LABS: ABSOLUTE NEUTROPHILS 2.6 thou/uL (1.4-8.2); BASOPHILS 1.1 % (0.0-2.0); HEMATOCRIT 38.9 % (42.0-52.0); HEMOGLOBIN 12.6 gm/dL (14.0-18.0); LYMPHOCYTES 27.4 % (24.0-44.0); MCH 28.9 pg (26.0-34.0); MCHC 32.2 g/dL (28.0-37.0); MCV 89.7 fL (80.0-100.0); MONOCYTES 8.3 % (1.0-8.0); PLATELET COUNT 183 thou/uL (150-400); POLYS 61.2 % (36.0-66.0); RBC 4.34 mil/uL (4.50-6.00); RDW 14.5 % (10.5-14.5); WBC 4.2 thou/uL (4.0-11.0)
[2020-03-14 23:46] LABS: URINE BILIRUBIN NEGATIVE (Negative); URINE BLOOD 1+ (Negative); URINE CLARITY CLEAR; URINE COLOR YELLOW; URINE GLUCOSE-RANDOM* 3+ (Negative); URINE KETONES NEGATIVE (Negative); URINE LEUKOCYTES-REFLEX NEGATIVE (Negative); URINE NITRITE-REFLEX NEGATIVE (Negative); URINE PROTEIN (DIPSTICK) 2+ (Negative); URINE SPECIFIC GRAVITY 1.015 (1.005-1.035); URINE UROBILINOGEN 0.2 E.U./dl (0.2-1.0)
[2020-03-14 23:47] LABS: CALCIUM 8.8 mg/dL (8.5-10.1); CREATININE 11.4 mg/dL (0.7-1.3); POTASSIUM 5.7 mmol/L (3.5-5.1)
[2020-03-14 23:52] LABS: DIRECT BILIRUBIN 0.2 mg/dL (<0.1-0.2); TOTAL BILIRUBIN 0.6 mg/dL (0.2-1.0); TOTAL PROTEIN 7.8 g/dL (6.4-8.2)
[2020-03-14 23:59] LABS: SQUAMOUS 0-3 Few /LPF (0-3); URINE RBC 3-10 Few /HPF (0-2); URINE WBC-REFLEX 0-5 Rare /HPF (0-5)
[2020-03-15] LABS: BACTERIA-REFLEX 1-9 Few /HPF (None Seen); CASTS None Seen /LPF (None Seen); CRYSTALS None Seen /LPF (None Seen); MUCUS 0-3 Light strn/LPF (None Seen)
[2020-03-15 02:22] VITALS: BP 150/77
== END 2020-03-15 02:25 | disposition home or self-care (01) ==
LOC: ER 21:50
PROVIDERS: Emergency Medicine
DX: R10.32 Left lower quadrant pain (principal); I12.0 Hypertensive chronic kidney disease with stage 5 chronic kidney disease or end stage renal disease; E11.22 Type 2 diabetes mellitus with diabetic chronic kidney disease; N18.6 End stage renal disease; Z79.4 Long term (current) use of insulin; Z79.01 Long term (current) use of anticoagulants; Z79.899 Other long term (current) drug therapy; Z88.8 Allergy status to other drugs, medicaments and biological substances

== ENCOUNTER 2020-04-12 12:05 | Emergency (ER) | payer BC, OTHER ==
[~2020-04-12] VITALS: Ht 182.9 cm; Wt 99.8 kg
[2020-04-12 13:46] LABS: URINE BILIRUBIN NEGATIVE (Negative); URINE BLOOD TRACE (Negative); URINE CLARITY CLEAR; URINE COLOR YELLOW; URINE GLUCOSE-RANDOM* NEGATIVE (Negative); URINE KETONES NEGATIVE (Negative); URINE LEUKOCYTES-REFLEX NEGATIVE (Negative); URINE NITRITE-REFLEX NEGATIVE (Negative); URINE PROTEIN (DIPSTICK) 2+ (Negative); URINE UROBILINOGEN 0.2 E.U./dl (0.2-1.0)
[2020-04-12 13:54] LABS: HEMATOCRIT 37.6 % (42.0-52.0); HEMOGLOBIN 12.4 gm/dL (14.0-18.0); MCH 29.3 pg (26.0-34.0); MCV 88.8 fL (80.0-100.0); PLATELET COUNT 156 thou/uL (150-400); RBC 4.23 mil/uL (4.50-6.00); RDW 14.4 % (10.5-14.5); WBC 2.6 thou/uL (4.0-11.0)
[2020-04-12 14:04] LABS: SQUAMOUS 0-3 Few /LPF (0-3)
[2020-04-12 14:05] LABS: BACTERIA-REFLEX 1-9 Few /HPF (None Seen); CASTS None Seen /LPF (None Seen); CRYSTALS None Seen /LPF (None Seen); URINE RBC 0-2 Rare /HPF (0-2); URINE WBC-REFLEX 0-5 Rare /HPF (0-5)
[2020-04-12 14:22] LABS: ALBUMIN 3.7 g/dL (3.4-5.0); CREATININE 5.6 mg/dL (0.7-1.3); DIRECT BILIRUBIN 0.2 mg/dL (<0.1-0.2); POTASSIUM 3.8 mmol/L (3.5-5.1); TOTAL BILIRUBIN 0.7 mg/dL (0.2-1.0); TOTAL PROTEIN 7.1 g/dL (6.4-8.2)
[2020-04-12 14:30] LABS: ABSOLUTE NEUTROPHILS 1.5 thou/uL (1.4-8.2); NUCLEATED RBCS 1 /100WBC
[2020-04-12 14:32] LABS: CALCIUM 8.8 mg/dL (8.5-10.1)
[2020-04-12 14:35] LABS: PLATELET ESTIMATE NORMAL
[2020-04-12 14:38] LABS: ANISOCYTOSIS SLIGHT
[2020-04-12 15:30] VITALS: BP 194/97
== END 2020-04-12 15:30 | disposition home or self-care (01) ==
LOC: ER 12:05
PROVIDERS: Nurse Practitioner
DX: R10.84 Generalized abdominal pain (principal); E11.9 Type 2 diabetes mellitus without complications; I10 Essential (primary) hypertension; M10.9 Gout, unspecified; Z79.4 Long term (current) use of insulin; Z79.899 Other long term (current) drug therapy; Z79.01 Long term (current) use of anticoagulants; Z79.82 Long term (current) use of aspirin; Z88.8 Allergy status to other drugs, medicaments and biological substances

== ENCOUNTER → 2020-05-04 | Outpatient (CLI) | payer BC, OTHER ==
[~2020-05-04] MED LIST changes: +ACAI500 MG PO; +CARVEDILOL25 MG PO; +CINACALCET HCL30 MG PO; +HUMALOG100 UNIT/1; +LOSARTAN POTASS50 MG PO; +NEURONTIN100 MG PO; +REFRESH CLASSI1 EACH OPHTHALMIC; +RENAL-VITE TAB0.8 MG PO; +VITAMIN B-121000 MCG PO
== END ==
LOC: LAB 09:32
PROVIDERS: ATTEND Specialist
DX: Z01.812 Encounter for preprocedural laboratory examination (principal); Z20.828 Contact with and (suspected) exposure to other viral communicable diseases

== ENCOUNTER → 2020-05-11 | Outpatient (CLI) | payer BC, OTHER ==
[~2020-05-11] VITALS: Ht 182.9 cm; Wt 99.3 kg
--- NOTE | 2020-05-13 10:26 | P ---
[facility] [place] [address] PROCEDURE REPORT Name: LUCIANOHERNAN TREVIN Room #: REG NEW Nazario#: [id number] Admission: 05/11/20 Attend Phys: Bandar De La Garza Discharge: Date of : 63 Report #: [id number] THIS REPORT FOR: cc: Vika Herrmann K. Steven DO [place],Bandar Conte MD ~ DATE OF SERVICE: 05/11/2020 PROCEDURE PERFORMED: Upper endoscopy with biopsies. HISTORY OF PRESENT ILLNESS: The patient is a 54-year-old male who was seen in the office 04/21/2020 with complaints of indigestion, abdominal pain, constipation. We started Linzess at that time, which has been helpful. The patient does take aspirin on a regular basis. He also takes Tums on a p.r.n. basis. Denies any nausea, vomiting or dysphagia. Plan is for upper endoscopy. DESCRIPTION OF PROCEDURE: The risks and benefits of the procedure were explained to the patient, those risks including but not limited to bleeding, perforation and the risk of sedation. He understood these risks and gave informed consent. Sedation was given using propofol per anesthesia. Next, using a standard Olympus upper endoscope, the scope was placed in the patient's mouth and advanced under direct vision through the esophagus, stomach and into the second portion of the duodenum. The larynx was normal in appearance. The upper and mid esophagus was normal. In the distal esophagus, grade C erosive esophagitis was noted. The gastric fundus was normal. There was patchy gastritis noted in the body and antrum. Several small clean white-based ulcers were noted. In the gastric antrum, there were 3-4 mm in size. Several erosions were also noted. No evidence of bleeding. Biopsies were obtained to rule out H. pylori. The pylorus was normal and patent. The duodenal bulb, first and second portion were normal. The scope was then withdrawn and the procedure terminated. The patient tolerated the procedure well. IMPRESSION: 1. Grade C erosive esophagitis. 2. Gastritis with gastric erosions and a few small gastric ulcers. No evidence of bleeding. 3. Otherwise, normal upper endoscopy. RECOMMENDATIONS: 1. Await biopsy results. 2. Would recommend long-term daily PPI therapy. [address] [address] PROCEDURE REPORT Name: HERNAN WOLF III Room #: REG NEW Nazario#: [id number] Admission: 05/11/20 Attend Phys: Bandar De La Garza Discharge: Date of : 63 Report #: [id number] Thank you for allowing me to participate in his care. <ELECTRONICALLY SIGNED> By: Bandar Altman MD 05/13/20 1026 1009 1134 Bandar Altman MD /nt
--- NOTE | 2020-05-13 16:06 | PATH ---
[facility] [address] [place] [address] PATHOLOGY RPT PROCEDURE Name: BENTLEY WOLF TREVIN Room #: REG NEW Nazario#: [id number] Admission: 05/11/20 Date of : 63 Discharge: Report #: [id number] Path Case #: [id number] [facility] Accession Number: [id number] . 01 Material submitted: . gastrointestinal site - BX GASTRITIS R/O H.PYLORI . 02 Diagnosis: Gastric mucosa, gastritis, endoscopic biopsy: - Mild reactive gastropathy associated with a few dilated fundic glands within lamina propria. - Negative for intestinal metaplasia or atrophy. - Negative for Helicobacter pylori (properly controlled immunohistochemical stain performed). (IUV:marcos; 05/13/2020) QMS 05/13/2020 1141 Local . 02 Electronically signed: . Sara Humphrey MD, Pathologist NPI- [id number] . 01 Gross description: . The specimen is received in formalin, labeled "Bentley Wolf III, biopsy gastritis, R/O H. pylori". Received are three segments of pale horton soft tissue ranging in size from 0.3 to 0.5 cm in maximum dimensions. The specimen is submitted entirely in cassette A1. (CAA; 05/12/2020) QAC/QAC 05/12/2020 1136 Local . 02 Pathologist provided ICD-10: K31.9 . 02 CPT . 710088, P79994 Specimen Comment: Report sent to Performed at: [address], [place] [id number] MD Dino Marshall MD Phone: [phone] Performed at: [address] [id number] MD Sara Humphrey MD Phone: [phone]
== END | disposition home or self-care (01) ==
LOC: GI 07:32
PROVIDERS: ATTEND Specialist
DX: R10.9 Unspecified abdominal pain (principal); K59.00 Constipation, unspecified; K31.9 Disease of stomach and duodenum, unspecified; K22.10 Ulcer of esophagus without bleeding; K29.70 Gastritis, unspecified, without bleeding; E11.22 Type 2 diabetes mellitus with diabetic chronic kidney disease; I12.9 Hypertensive chronic kidney disease with stage 1 through stage 4 chronic kidney disease, or unspecified chronic kidney disease; N18.6 End stage renal disease; E78.00 Pure hypercholesterolemia, unspecified; M10.9 Gout, unspecified; Z98.890 Other specified postprocedural states; Z79.899 Other long term (current) drug therapy; Z79.4 Long term (current) use of insulin
CPT/HCPCS: 62110; 62900

== ENCOUNTER 2020-06-23 04:34 | Emergency (ER) | payer BC, OTHER ==
[~2020-06-23] VITALS: Ht 182.9 cm; Wt 103.0 kg
[2020-06-23] MEDS ORDERED: CARVEDILOL25 MG PO ×2 (04:53→04:54)
[2020-06-23] MEDS ORDERED: LINZESS290 MCG PO (04:59)
[2020-06-23 05:41] VITALS: BP 201/81
== END 2020-06-23 05:45 | disposition home or self-care (01) ==
LOC: ER 04:34
DX: M79.652 Pain in left thigh (principal); E78.5 Hyperlipidemia, unspecified; M10.9 Gout, unspecified; E11.22 Type 2 diabetes mellitus with diabetic chronic kidney disease; I12.0 Hypertensive chronic kidney disease with stage 5 chronic kidney disease or end stage renal disease; N18.6 End stage renal disease; Z99.2 Dependence on renal dialysis; Z79.82 Long term (current) use of aspirin; Z79.4 Long term (current) use of insulin; Z79.899 Other long term (current) drug therapy; Z88.5 Allergy status to narcotic agent; Z88.8 Allergy status to other drugs, medicaments and biological substances

== ENCOUNTER 2021-04-12 12:44 | Emergency (ER) | payer BC, OTHER ==
[~2021-04-12] VITALS: Ht 182.9 cm; Wt 101.2 kg
[~2021-04-12 12:44] MED LIST changes: +LINZESS290 MCG PO
[2021-04-12 12:45] VITALS: BP 88/52
== END 2021-04-12 14:25 | disposition home or self-care (01) ==
LOC: ER 12:44
PROVIDERS: Student in an Organized Health Care Education/Training Program
DX: R53.1 Weakness (principal); Z20.822 Contact with and (suspected) exposure to COVID-19; E78.00 Pure hypercholesterolemia, unspecified; I13.2 Hypertensive heart and chronic kidney disease with heart failure and with stage 5 chronic kidney disease, or end stage renal disease; N18.6 End stage renal disease; I50.9 Heart failure, unspecified; E11.22 Type 2 diabetes mellitus with diabetic chronic kidney disease; M10.9 Gout, unspecified; Z99.2 Dependence on renal dialysis; Z98.890 Other specified postprocedural states; Z79.82 Long term (current) use of aspirin; Z79.4 Long term (current) use of insulin; Z79.891 Long term (current) use of opiate analgesic; Z79.899 Other long term (current) drug therapy; Z79.1 Long term (current) use of non-steroidal anti-inflammatories (NSAID); Z88.6 Allergy status to analgesic agent; Z88.8 Allergy status to other drugs, medicaments and biological substances

== ENCOUNTER 2021-04-13 11:15 | Emergency (ER) | payer BC, OTHER ==
[~2021-04-13] VITALS: Ht 182.9 cm; Wt 102.1 kg
[2021-04-13 13:32] LABS: HEMATOCRIT 39.6 % (42.0-52.0); HEMOGLOBIN 12.8 gm/dL (14.0-18.0); MCHC 32.2 g/dL (28.0-37.0); MCV 86.7 fL (80.0-100.0); PLATELET COUNT 136 thou/uL (150-400); RBC 4.57 mil/uL (4.50-6.00); RDW 14.9 % (10.5-14.5); WBC 2.4 thou/uL (4.0-11.0)
[2021-04-13 13:53] LABS: CALCIUM 8.3 mg/dL (8.5-10.1); CREATININE 13.8 mg/dL (0.7-1.3); POTASSIUM 5.2 mmol/L (3.5-5.1)
[2021-04-13 14:02] LABS: ALBUMIN 3.5 g/dL (3.4-5.0); TOTAL BILIRUBIN 0.5 mg/dL (0.2-1.0); TOTAL PROTEIN 7.6 g/dL (6.4-8.2)
[2021-04-13 14:08] LABS: ABSOLUTE NEUTROPHILS 1.7 thou/uL (1.4-8.2)
[2021-04-13 15:47] VITALS: BP 154/76
--- NOTE | 2021-04-14 07:40 | EKG ---
[place] [address] [facility] [place] [address] ELECTROCARDIOGRAM REPORT Name: HERNAN WOLF III Room #: PONCHO Nazario#: [id number] Admission: 04/13/21 Attend Phys: Discharge: 04/13/21 Date of : 63 Report #: [id number] [facility] ED Test Date: 2021-04-13 Test Time: 13:17:26 Pat Name: HERNAN WOLF Department: Room: Gender: M Twister In: MIRANDA : 1965 Requested By: Nicole George Order Number: [id number] MD: Jose De Jesus Levy Measurements Intervals [place] Rate: 73 P: 66 AK: 207 QRS: 20 QRSD: 95 T: 34 QT: 391 QTc: 431 Interpretive Statements Sinus rhythm Borderline prolonged AK interval Probable anteroseptal infarct, old Compared to ECG 02/18/2018 16:49:33 Myocardial infarct finding now present Poor R-wave progression no longer present Electronically Signed On 04-14-2021 7:40:04 [employer] by Jose De Jesus Levy [email or web address] <ELECTRONICALLY SIGNED> By: Jose De Jesus Levy MD, [facility] 04/14/21 0740 D: [id number] 16 Jose De Jesus Levy MD, FACC /EPI
[2021-04-14] MEDS ORDERED: CARVEDILOL25 MG PO (20:46)
== END 2021-04-13 15:47 | disposition home or self-care (01) ==
LOC: ER 11:15
PROVIDERS: Nurse Practitioner Family
DX: U07.1 COVID-19 (principal); M62.81 Muscle weakness (generalized); E78.00 Pure hypercholesterolemia, unspecified; M10.9 Gout, unspecified; I12.0 Hypertensive chronic kidney disease with stage 5 chronic kidney disease or end stage renal disease; N18.6 End stage renal disease; E11.319 Type 2 diabetes mellitus with unspecified diabetic retinopathy without macular edema; Z99.2 Dependence on renal dialysis; Z98.890 Other specified postprocedural states; Z86.718 Personal history of other venous thrombosis and embolism; Z86.73 Personal history of transient ischemic attack (TIA), and cerebral infarction without residual deficits; Z79.82 Long term (current) use of aspirin; Z79.4 Long term (current) use of insulin; Z79.891 Long term (current) use of opiate analgesic; Z79.899 Other long term (current) drug therapy; Z88.8 Allergy status to other drugs, medicaments and biological substances; Z88.6 Allergy status to analgesic agent

== ENCOUNTER 2021-04-14 13:25 | Inpatient (IN) | payer BC, OTHER ==
[~2021-04-14] VITALS: Ht 182.9 cm; Wt 102.1 kg
[2021-04-14 13:26] VITALS: BP 119/51
[2021-04-14 14:35] LABS: HEMATOCRIT 38.9 % (42.0-52.0); HEMOGLOBIN 12.6 gm/dL (14.0-18.0); MCH 27.9 pg (26.0-34.0); MCHC 32.3 g/dL (28.0-37.0); MCV 86.4 fL (80.0-100.0); PLATELET COUNT 122 thou/uL (150-400); RBC 4.51 mil/uL (4.50-6.00); RDW 14.9 % (10.5-14.5); WBC 2.5 thou/uL (4.0-11.0)
[2021-04-14 14:42] LABS: CALCIUM 8.6 mg/dL (8.5-10.1); POTASSIUM 3.9 mmol/L (3.5-5.1)
[2021-04-14 14:44] LABS: CREATININE 7.6 mg/dL (0.7-1.3)
[2021-04-14 14:46] LABS: URINE BILIRUBIN NEGATIVE (Negative); URINE BLOOD NEGATIVE (Negative); URINE CLARITY CLEAR; URINE COLOR YELLOW; URINE GLUCOSE-RANDOM* NEGATIVE (Negative); URINE KETONES NEGATIVE (Negative); URINE LEUKOCYTES-REFLEX NEGATIVE (Negative); URINE NITRITE-REFLEX NEGATIVE (Negative); URINE PROTEIN (DIPSTICK) 2+ (Negative); URINE SPECIFIC GRAVITY 1.015 (1.005-1.035); URINE UROBILINOGEN 0.2 E.U./dl (0.2-1.0)
[2021-04-14 15:57] LABS: ABSOLUTE NEUTROPHILS 1.8 thou/uL (1.4-8.2); ATYPICAL LYMPHS 3 %; HYPOCHROMASIA 3+; MYELOCYTES 1 %
[2021-04-14 16:12] LABS: BACTERIA-REFLEX None Seen /HPF (None Seen); CRYSTALS None Seen /LPF (None Seen); SQUAMOUS 0-3 Few /LPF (0-3); URINE RBC None Seen /HPF (NONE SEEN); URINE WBC-REFLEX None Seen /HPF (0-5)
[2021-04-14 18:14] LABS: ALBUMIN 3.3 g/dL (3.4-5.0); DIRECT BILIRUBIN 0.2 mg/dL (<0.1-0.2); TOTAL BILIRUBIN 0.5 mg/dL (0.2-1.0); TOTAL PROTEIN 7.7 g/dL (6.4-8.2)
[2021-04-14] MEDS ORDERED: CARVEDILOL25 MG PO (20:46)
[2021-04-14 20:48] VITALS: BP 147/66
[2021-04-15 06:00] LABS: HEMATOCRIT 37.7 % (42.0-52.0); HEMOGLOBIN 12.1 gm/dL (14.0-18.0); MCH 27.8 pg (26.0-34.0); RBC 4.34 mil/uL (4.50-6.00); RDW 14.9 % (10.5-14.5); WBC 2.4 thou/uL (4.0-11.0)
[2021-04-15] MEDS ORDERED: PREDNISONE 20 M20 MG PO (09:41)
[2021-04-15 10:14] VITALS: BP 147/66
[2021-04-15 10:52] VITALS: BP 151/47
== END 2021-04-15 10:52 | disposition home or self-care (01) | DRG 177 ==
LOC: ER 13:25 → EROBS 16:51
PROVIDERS: Nurse Practitioner; ADMIT Hospitalist; ATTEND Hospitalist
DX: U07.1 COVID-19 (principal); N18.6 End stage renal disease; Z94.0 Kidney transplant status; I12.0 Hypertensive chronic kidney disease with stage 5 chronic kidney disease or end stage renal disease; E78.5 Hyperlipidemia, unspecified; E78.00 Pure hypercholesterolemia, unspecified; M10.9 Gout, unspecified; E11.319 Type 2 diabetes mellitus with unspecified diabetic retinopathy without macular edema; R53.81 Other malaise; E11.22 Type 2 diabetes mellitus with diabetic chronic kidney disease; D69.6 Thrombocytopenia, unspecified; Z86.73 Personal history of transient ischemic attack (TIA), and cerebral infarction without residual deficits; Z88.6 Allergy status to analgesic agent; Z88.8 Allergy status to other drugs, medicaments and biological substances; Z79.4 Long term (current) use of insulin; Z98.42 Cataract extraction status, left eye; Z86.718 Personal history of other venous thrombosis and embolism